=== PATIENT | male | born 1975 | race African-American/Black ===

== ENCOUNTER 2016-09-03 18:33 | Inpatient (IN) ==
[2016-09-03 19:44] LABS: MANUAL DIFF NEEDED? NO
[2016-09-03 19:56] LABS: BASO% 0.1 % (0.0-0.8); HEMATOCRIT 36.1 % (42.0-52.0); HEMOGLOBIN 11.6 g/dL (14.0-18.0); IMM GRAN# 0.06 X1000 (0.0-0.04); IMM GRAN% 0.4 % (0.0-0.5); LYMPH# 1.05 X1000 (1.2-3.4); LYMPH% 6.3 % (20.5-51.1); MCH 30.3 PG (27-31); MCHC 32.1 g/dL (33-37); MCV 94.3 FL (81-99); MONO# 1.81 X1000 (0.11-0.59); MONO% 10.8 % (1.7-9.3); MPV 11.6 FL (7.4-10.4); NEUT% 82.4 % (42.2-75.2); PLT 160 X1000 (130-400); RBC 3.83 XMIL (4.7-6.1)
[2016-09-03 20:35] LABS: ALBUMIN 3.1 g/dL (3.5-5.0); CALCIUM 6.1 mg/dL (8.8-10.2); POTASSIUM 4.5 mmol/L (3.5-5.1); TOTAL BILIRUBIN 0.52 mg/dL (0.20-1.00); TOTAL PROTEIN 7.3 g/dL (6.3-8.3)
[2016-09-03] MEDS ORDERED: NS 1,000 ML ONE (20:56)
[2016-09-03] MEDS ORDERED: VANCOMYCIN 1 GM/NS 1 GM/250 ML IVPB IV ONE (21:05)
[2016-09-03] MEDS ORDERED: NS 250 ML IV ONE ×2 (21:08→22:13)
[2016-09-03] MEDS: LEVOPHED 8 MG in D5 1/2 NS 250 ML IV SCH ×2 (21:28→22:36)
[2016-09-03 21:32] LABS: ALLEN TEST YES; BE -3.6 mmoll (-3.0-3.0); BLOOD TYPE ARTERIAL; DRAW SITE L BRACHIAL; METHB 0.1 % (0.0-1.5); O2(CT) 15.4 mL/dL (15.0-23.0); PCO2(98.6) 20 mmHg (35-45); PO2(98.6) 132 mmHg (60-100); SAMPLE BLOOD; THB 11.4 g/dL (11.5-17.4); pH(98.6) 7.54 (7.35-7.45)
[2016-09-03 21:34] LABS: MODALITY CANNULA
[2016-09-03] MEDS ORDERED: CALCIUM GLUCONATE 2 GM in NS 100 ML IV ONE (22:13)
--- NOTE | 2016-09-03 23:23 | HISTORY AND PHYSICAL ---
PRIMARY [employer] ANDROID DEVELOPER: Dr. Michael Hubbard. CHIEF COMPLAINT: Low blood pressure. Cough. Fever. HISTORY OF PRESENT ILLNESS: This is a 40-year-old male with past medical history of end-stage renal disease on hemodialysis, hypertension, diabetes, who was brought to the emergency department because of low blood pressure while he was getting dialysis. The patient reports that during the last week approximately he has noticed some cough that was getting progressively worse and also he was bringing some greenish sputum as well. He noticed fever for the last few days and apparently one was documented while he was getting dialysis of 101. In dialysis he was noted to have a blood pressure that was getting low in the range of 80s and 90s. So he was brought here to the hospital. Upon ER evaluation, he was found to have an elevated white blood count and BMP unremarkable except renal dysfunction and calcium 6.1. He was requiring oxygen 2 L/minute. The temperature recorded here at 6:48 p.m. was 99.3, so he received in the ER vancomycin and 2 sets of blood cultures were drawn. The patient is going to be admitted for possible sepsis and pneumonia versus bronchitis suspected. PAST MEDICAL HISTORY: 1. End-stage renal disease on hemodialysis on Thursday, Thursday, and Thursday in the last 5-6 years. 2. Hypertension. 3. Diabetes mellitus type 2. PAST SURGICAL HISTORY: 1. Left 2nd and 3rd digit amputation. 2. Dialysis fistula. 3. . ALLERGIES: Patient reports being allergic to morphine which causes itching and also to amoxicillin as well. SOCIAL HISTORY: He denies drinking alcohol, smoking tobacco, or using illicit drugs. REVIEW OF SYSTEMS: Eleven systems were reviewed and all symptoms are related to H P. PHYSICAL EXAMINATION: VITALS: Temperature 99.8 degrees, heart rate 111, respiratory rate 22, blood pressure 82/61, O2 saturation 98% on 2 L nasal cannula. GENERAL EXAMINATION: This is a morbidly obese male, lying in bed in no acute distress. HEENT: Head is normocephalic, atraumatic. Anicteric sclerae and pale conjunctivae. Mucous membranes moist. Pupils equally round, reactive to light and accommodation. NECK: Supple. JVD is not possible to evaluate because of the neck girth. No lymphadenopathy, no thyromegaly. CARDIOVASCULAR: S1 and S2 heard. No murmurs, gallops, or rubs. Regular rate and rhythm. ABDOMEN: Soft, nontender to palpation. Bowel sounds present. No organomegaly. EXTREMITIES: No clubbing, cyanosis, or edema. Left 2nd and 3rd digits amputated. Also, there is an area of fluctuance in the left buttock, very painful to palpation. NEUROLOGICAL: Patient is alert and oriented x3. Moves 4 extremities. OTHER LABORATORY DATA: White cell count 16.71, hemoglobin 11.6, hematocrit 36.1 , platelet 160,000. ABG shows pH 7. , PCO2 20, PO2 132. BMP showed a sodium 136, potassium 4.5, chloride 88, bicarbonate 18, BUN 49, creatinine 11.6, calcium 6.1. ASSESSMENT AND PLAN: 1. Sepsis secondary to pneumonia. 2. End-stage renal disease on hemodialysis. 3. Diabetes mellitus. 4. Hypotension. 5. Morbid obesity. 6. Possible sleep apnea. 7. Possible gluteal abscess PLAN: The patient is being admitted to the hospital because of history of approximately 1 week of cough that is getting worse and fever, white cell count of 88 and in the ER he was found to have a blood pressure coming down. The patient is going to be admitted to the intensive care unit. He will be started on broad-spectrum antibiotics with vancomycin and meropenem, both renally dosed. We are going to provide also breathing treatments. Also just to make sure and to have a better visualization of the lung anatomy, we are going to do a CT of the chest without contrast. Because the blood pressure we mentioned before is getting low, we will use vasopressors. For management of diabetes, we are going to check hemoglobin A1c and also use sliding scale insulin as well. For hypertension of course we are going to hold all blood pressure medication, although it is important to remark there is no blood pressure med recorded in the chart. For gluteal abscess will consult general surgery. Further recommendations to follow according to the clinical situation of the patient. cc: Alex Grover MD MTDD
[2016-09-03] MEDS: VANCOMYCIN 1 GM/NS 1 GM/250 ML IVPB IV ONE ×2 (23:35→23:40)
[2016-09-04] MEDS ORDERED: VANCOMYCIN IV PER PHARMACY MISC SCH (01:13)
[2016-09-04] MEDS ORDERED: ZOFRAN IV PRN (01:13)
[2016-09-04] MEDS: MERREM 500 MG in NS 50 ML IV SCH (01:35)
[2016-09-04 01:37] LABS: HEMOGLOBIN A1C 9.4 % (4.8-6.0)
[2016-09-04] MEDS: TYLENOL PO PRN ×2 (02:13→12:46)
[2016-09-04] MEDS ORDERED: XYLOCAINE 1% ONE (02:32)
[2016-09-04] MEDS: DUONEB (A & A) INH SCH ×4 (02:51→19:19)
--- NOTE | 2016-09-04 05:36 | EKG Report ---
Test Performed on : 09/03/2016 9:13:31 PM Test Reason : CP Blood Pressure : / mmHG Vent. Rate : 116 BPM Atrial Rate : 116 BPM P-R Int : 140 ms QRS Dur : 074 ms QT Int : 360 ms P-R-T Axes : 053 -05 034 degrees QTc Int : 500 ms Sinus tachycardia. Low voltage QRS Borderline ECG When compared with ECG of 28-JUL-2015 18:43, No significant change was found Unconfirmed Result
[2016-09-04] MEDS: HEPARIN SUBQ SCH ×3 (06:06→21:30)
[2016-09-04 06:24] LABS: EOS# 0.01 X1000 (0.0-0.7); HEMATOCRIT 37.1 % (42.0-52.0); HEMOGLOBIN 11.5 g/dL (14.0-18.0); IMM GRAN# 0.17 X1000 (0.0-0.04); IMM GRAN% 0.8 % (0.0-0.5); LYMPH# 1.33 X1000 (1.2-3.4); LYMPH% 6.1 % (20.5-51.1); MANUAL DIFF NEEDED? YES; MCH 29.9 PG (27-31); MCV 96.4 FL (81-99); MONO# 2.88 X1000 (0.11-0.59); MONO% 13.1 % (1.7-9.3); MPV 11.3 FL (7.4-10.4); PLT 165 X1000 (130-400); RBC 3.85 XMIL (4.7-6.1)
[2016-09-04 06:40] LABS: LYMPHS 8 % (21-51); MONO 8 % (1-9)
[2016-09-04 06:46] LABS: POTASSIUM 4.8 mmol/L (3.5-5.1)
[2016-09-04 06:48] LABS: CALCIUM 6.4 mg/dL (8.8-10.2)
--- NOTE | 2016-09-04 07:04 | CONSULTATION ---
DATE OF CONSULTATION: 09/04/2016 REQUESTING PHYSICIAN: Hospitalist Service. REASON FOR CONSULTATION: Right gluteal abscess. HISTORY OF PRESENT ILLNESS: A 40-year-old male with multiple medical comorbidities presenting with a low blood pressure, fever and cough from dialysis. He was seen in emergency department and had a temperature of 101 degrees. At that time, there was what appeared to be a gluteal abscess which they drained. He had been in the emergency department until an ICU bed became available. His clinical situation was somewhat deteriorating and was started on additional supportive therapy including vasopressors. They had requested me to evaluate for the gluteal abscess. He is still currently on Levophed reporting pain in his right gluteal area. He had a CT scan that did not show an abscess but showed area of gas which is likely related to the previously drained abscess. I clinically do not feel any crepitus is suspected. He has a necrotizing soft tissue infection but I was asked to evaluate for that. PAST MEDICAL HISTORY: 1. End-stage renal disease requiring hemodialysis. 2. Hypertension. 3. Diabetes mellitus. PAST SURGICAL HISTORY: 1. Includes previous digital amputations. 2. Dialysis fistula. 3. Previous surgery on scrotal and penile ischemia. ALLERGIES: Morphine and amoxicillin. SOCIAL HISTORY: Denies drinking alcohol, tobacco or illicit drugs. FAMILY HISTORY: Reviewed with patient, noncontributory to this case. REVIEW OF SYSTEMS: A full 10 point review of systems obtained, negative as specified in HPI. PHYSICAL EXAMINATION: Vital Signs: Patient is currently afebrile. Temperature 98 degrees, pulse 90s to 100's, respiratory nonlabored in the 20s, and blood pressure 94/50 on Levophed. O2 saturation 100% on room air. General: No acute distress. Alert, interactive male who looks stated age. He is morbidly obese. HEENT: Normocephalic and atraumatic. Pupils equal, round, and reactive to light. Mucous membranes moist. Oropharynx benign. Neck: Supple. Trachea midline. Cardiovascular: Regular rate and rhythm. Lungs: Grossly clear. Abdomen: Soft and nontender. Extremities: Area of erythema noted to the right gluteal aspect not currently draining anything and very tender to palpation. Neurologic: Grossly intact. LABORATORY: White blood cell count is 21.9, hematocrit 37.1 and platelet count 165,000. CT scan independently reviewed and radiology report reviewed, noted as above. ASSESSMENT/PLAN: A 40-year-old, male with multiple medical comorbidities currently with gluteal abscess. 1. Sepsis. At this time, patient potentially has symptoms from pneumonia per the hospitalist's evaluation. Do not suspect that this gluteal abscess is causing it. I think it was adequately drained at the emergency department, but I will do a bedside incision and drainage. 2. End-stage renal disease currently on hemodialysis. 3. Gluteal abscess. At this time, I will plan on a bedside incision and drainage of gluteal abscess. We will likely pack it with Kerlix rolls and monitor him closely. He is on antibiotics. We will continue to follow with you. I appreciate the consult. cc: Sigifredo Machuca MD
--- NOTE | 2016-09-04 07:11 | OPERATIVE NOTE ---
PROCEDURE DATE: 09/04/2016 PREOPERATIVE DIAGNOSIS: Right gluteal abscess. POSTOPERATIVE DIAGNOSIS: Right gluteal abscess. PROCEDURE: Incision drainage for right gluteal abscess. SURGEON: Sigifredo Machuca MD. SNAILER: None. ANESTHESIA: Local administered by the surgeon. FINDINGS: Cavity noted to the right gluteal fold which had previously been drained and had some purulence. BRIEF HISTORY: The patient is a 40-year-old male with multiple medical comorbidities presenting with fever and pneumonia. He was found have a gluteal abscess. It had been drained previously in the emergency department. They had a repeat CT scan that showed air in the area with a gluteal abscess and was concerning for necrotizing soft tissue infection. He clinically did not have that picture. He did not have any crepitus, but I felt that there potentially could be undrained abscess given the fact that the skin had closed back up. The risks, benefits and alternatives for drainage were discussed. All questions were answered. DESCRIPTION OF PROCEDURE: After informed consent was obtained, patient remained in his ICU bed. At that time, we used local anesthetic to anesthetize the skin after the formal time-out. After that, we prepped and draped the area in a semi sterile fashion. We used an 11 blade to make a long incision. We encountered some purulence. I did bluntly dissect into a cavity and encountered more purulence that tracked approximately 10 cm from the gluteus inward. We packed the area with normal saline soaked gauze and placed a sterile dressing. The patient tolerated the procedure well. He remained in his ICU bed. Postoperatively, we will get a wound care to see him for potential vashe wet-to-dry dressing changes b.i.d. cc: Sigifredo Machuca MD [facility]
[2016-09-04] MEDS ORDERED: HEPARIN ONE (07:38)
[2016-09-04] MEDS ORDERED: NS 2,000 ML ONE (07:39)
[2016-09-04] MEDS ORDERED: NS 2,000 ML MISC PRN (07:45)
[2016-09-04] MEDS ORDERED: TIGHT: 0.2 ML/HR MISC PRN (07:45)
[2016-09-04] MEDS ORDERED: HEPARIN IV PRN (07:45)
--- NOTE | 2016-09-04 07:48 | Diag Imaging Result Document ---
PROCEDURE NAME: CHEST-PORTABLE - 09/03/2016 PORTABLE CHEST X-RAY: COMPARISON: 07/28/2015. FINDINGS: There is a new left dialysis catheter with the tip in good position at the cavoatrial junction. The lungs are clear. No pneumothorax or pleural effusion. Heart size remains enlarged. IMPRESSION: No complication.
--- NOTE | 2016-09-04 07:51 | Diag Imaging Result Document ---
PROCEDURE NAME: CT THORAX W/O CONTRAST - 09/03/2016 CT CHEST: A CT dose reduction protocol was used. COMPARISON: 02/06/2013. FINDINGS: There is severe vascular calcification of all of the arteries visualized, including the coronary arteries. The lungs are clear of infiltrate. Heart size is grossly normal. No pneumothorax or pleural effusion. No adenopathy. There is a left dialysis catheter with the tip at the cavoatrial junction. No acute bony lesions. IMPRESSION: No acute disease or complication. [facility]
--- NOTE | 2016-09-04 07:53 | Diag Imaging Result Document ---
PROCEDURE NAME: ABDOMEN/PELVIS W/O CONTRAST - 09/04/2016 CT ABDOMEN AND PELVIS: A CT dose reduction protocol was used. COMPARISON: 09/10/2013. FINDINGS: There is subcutaneous edema and significant subcutaneous gas at the left right buttocks. The largest area measures about 5.8 x 8.1 cm in AP and lateral dimensions. No focal or drainable fluid collection visible. This does not extend to the perineum. No deeper tissue involvement. No bowel obstruction or inflammation. Urinary bladder, prostate, and rectum are normal. There is extreme atrophy of the kidneys and severe calcified atherosclerotic disease throughout the abdomen and pelvis. No acute abnormalities in the abdomen or pelvis otherwise. No acute bony lesions. IMPRESSION: Subcutaneous edema and gas at the right buttock consistent with infection with a gas- forming bacterium. However, no drainable fluid collections. No involvement of the perineal or deeper structures. [facility]
[2016-09-04] MEDS: NORCO-5 PO PRN (07:55)
[2016-09-04] MEDS: HUMALOG SUBQ SCH ×4 (08:00→21:31)
--- NOTE | 2016-09-04 08:58 | CONSULTATION ---
DATE OF CONSULTATION: 09/04/2016 CONCLUSION: The patient was admitted to the hospital. He was hypotensive and felt to be septic. It should be noted the CT scan of the chest shows clear lungs so it does not appear the patient has pneumonia. He is complaining of congestion in his sinuses and he may have a sinusitis; however, I would doubt that would be causing a septic-like condition. The patient has an AV fistula in his left arm that has recently been operated on and he has a dialysis catheter in the left side of his neck, and I think it is possible that he could have a bacteremia originating from the dialysis catheter. Patient does have on his back an abscess. It was originally drained once and then it was redrained again today. I do not think this is the source of the patient's hypotension and presumed sepsis, but it possibly could be. RECOMMENDATIONS: I have ordered a portable sinus x-ray. Also I have ordered that the patient who already received 1 dose of vancomycin, that I have ordered to for him to get 1 g of vancomycin after each dialysis. I agree with placing the patient on meropenem pending blood culture results. DISCUSSION: This gentleman is a dialysis patient. He was admitted to the hospital because he became hypotensive. [place] [address], hemoglobin 11.5, and platelet count 165,000. Creatinine is 12.8, GFR is 5. Liver function studies are normal. Patient's blood gases show a pH of 7.54, PO2 of 132 and a pCO2 of 20. CT scan of the chest shows clear lung [place]. Gram stain taken from the patient's back abscess on gram stain has gram positive cocci. PAST MEDICAL/HISTORY REVIEW OF SYSTEMS: Eyes and ears: He denies difficulty hearing or seeing. Neck: No stiffness. Respiratory: No cough or shortness of breath. Cardiovascular: No chest pain or palpitations. Gastrointestinal: The patient had some loose stools for a couple of days. He is anorectic but he is not vomiting. Genitourinary: The patient does not pass any urine. He has end-stage renal disease, and he is on dialysis. GI: As mentioned above, patient is anorectic and he did have diarrhea. Bones, joints, muscles: No joint swelling or muscle aching. Neurologic: No motor or sensory loss. No seizures. The remainder of the review of systems was completed and was negative. PREVIOUS HOSPITALIZATIONS AND OPERATIONS: He has had an AV fistula put in his left arm and then this was reoperated on recently. He has had an internal jugular catheter placed for dialysis. He has had amputation of the left middle finger and amputation of the toes 2 and 3 on the left foot. He has had incision and drainage of the sacral abscess twice now. MEDICAL DISEASES: Positive for end-stage renal disease. Patient is on hemodialysis. He is obese. He has diabetes mellitus and hypertension. INFECTIOUS DISEASE HISTORY: Negative for pneumonia and UTI. FAMILY HISTORY: Positive for hypertension. SOCIAL HISTORY[place] is [place]. He lives with his parents. He has dogs for pets. He does not smoke cigarettes, drink alcoholic beverages or abuse drugs. He is disabled. ALLERGIES: Patient's chart lists allergies to amoxicillin and morphine. HOME MEDICATIONS: 1. Insulin. 2. Gabapentin. PHYSICAL EXAMINATION: Vital Signs: Temperature is 98 degrees, pulse 105, respirations 23, blood pressure 94/50. Patient's weight is 350 pounds. General: This is an obese young male. He is slightly lethargic. He is in no acute distress. Head, eyes, ears, nose, and throat: No drainage noted from the nose or ears. There is no white coating to his tongue. Neck: No meningismus thorax. Patient has an increased AP diameter. Lungs: Clear to auscultation. Cardiovascular: Regular heart rate. Extremities: The patient in his left arm has an AV fistula which has recently been operated on. There is no drainage coming from it and it is not tender. Neck: Not stiff. He does have an internal jugular catheter in place for dialysis. The catheter site is not swollen or tender. Abdomen: Abdomen is soft and nontender. Neurologic: Patient is awake. He can move his extremities. There is no tremor. His sensation is intact to touch. His memory, as regarding his medical history seemed to be intact also. Thank you for the consult. cc: Mikey Ahn MD
--- NOTE | 2016-09-04 10:21 | PROGRESS NOTE ---
DATE: 09/04/2016 HISTORY: Admitted yesterday. A 40-year-old with a past medical history of end-stage renal disease on hemodialysis, hypertension, and diabetes. Brought into the emergency room low blood pressure while he was getting dialysis. The reports that the last week approximately, noted some cough and getting progressively worse. He also was bringing some greenish sputum up. Noticed a fever for a few days. Apparently was documented while in dialysis, had a fever of 101 in dialysis, noted blood pressure being low in the range of 80s and 90s. Brought here to the hospital. ER evaluation, evaluated white blood cell count. The BNP was unremarkable except for his elevated creatinine, calcium of 6.1, requiring oxygen at 2 L per minute. Temperature was 99.3 degrees. Was given some vancomycin. Two sets of blood cultures were drawn. Admitted for possible sepsis, pneumonia, bronchitis. PAST MEDICAL HISTORY: Reviewed again. 1. End-stage renal disease, Thursday, Wednesdays, and Fridays. 2. Hypertension. 3. Diabetes mellitus type 2. PAST SURGICAL HISTORY: 1. Left second and third digit amputation. 2. Distal fistula. DIAGNOSTIC DATA: A chest x-ray apparently revealed pneumonia. SUBJECTIVE: This morning, he feels better, breathing a little better. He just started dialysis. Appears comfortable. PHYSICAL EXAMINATION: Vital Signs: Blood pressure is still running low, 80s-90s systolic. Temperature 99, pulse 103, respirations 22. Lungs: Were clear anterolateral. Cardiovascular Examination: Regular rhythm and rate without murmur or S3. Abdomen: Soft. Skin: Warm and dry. Is and Os: Good urine output. LAB: White count 21,910, hematocrit 37, platelet count 165,000. Chemistry: Sodium 138, potassium 4.8, chloride 89, bicarb 14, BUN 56, creatinine 12.6, and calcium 6.4. ASSESSMENT AND PLAN: 1. Pneumonia with sepsis. CT scan of the chest showed clear lungs so apparently he does not have pneumonia but appeared to be septic coming in. He was complaining of sinus congestion so he may have sinusitis but doubt that this would be causing his septic like symptoms. He has an arteriovenous fistula in the left arm, recently operated on, has dialysis catheter in the left side of his neck. Dr. Ahn is following so this possibly could be bacteremia originating from the dialysis catheter. The patient does have an abscess on his back that was originally drained once. Then it drained again, I guess today. Continue vancomycin. The patient was placed on meropenem per Dr. Ahn as well. 2. Abscess on his back, local anesthesia, right gluteal abscess was drained. 3. End-stage renal disease. I am going to see if we can draw some fluid off. 4. Hypertension. 5. Morbid obesity. 6. Sleep apnea, obstructive apnea. 7. Review of his orders. I do not see anything to change at this point. He got 2 g of calcium gluconate. He is on meropenem 500 mg intravenous every 24 hours, vancomycin, receiving post dialysis. He is on heparin 5000 units subcutaneous every 8. cc: Gilson Truong MD
--- NOTE | 2016-09-04 10:41 | CONSULTATION ---
DATE OF CONSULTATION: 09/04/2016 REASON FOR ADMISSION: Fever associated with productive cough and weakness associated with low blood pressure. REASON FOR CONSULT: End-stage renal disease with assistance with medical management. HISTORY OF PRESENT ILLNESS: Mr. Gutierrez is a 40-year-old male who is known to our outpatient services for hemodialysis on Thursday, Thursday, and Thursday. Patient was at his routine dialysis treatment yesterday evening. He came in with a fever. We have drawn blood cultures. Unfortunately, the patient was not feeling well and had taken himself off dialysis early to come to the emergency room so he did not receive any prophylactic antibiotics. It appears that he was getting 1 g of vancomycin and Merrem in the emergency room and after arrival to the ICU. Due to his low blood pressure, the patient is currently on Levophed. Blood pressure is remaining in the low to mid 80s and he is in need for further treatment. Upon arrival in the emergency room, it was found that patient had been complaining of a boil on his perianal area, that he stated started approximately 5 days ago last . Stated that he thought it was getting better by Thursday, when he was seen at the outpatient clinic. Unfortunately, he said that by yesterday it was very, very uncomfortable and he could not sit and had fever. Dr. Machuca has subsequently seen the patient. He did an I D with drainage and it has wet to dry packing that is currently in place. He denies any nausea, vomiting, no diarrhea. No chest pain. No increased work of breathing. SOCIAL HISTORY: He has a girlfriend that he sees frequently. Denies any alcohol, illicit drug use, or tobacco. PAST MEDICAL HISTORY: End-stage renal disease with hemodialysis on Thursday, Thursday, Thursday, hypertension, diabetes mellitus type 2. He has a history of peripheral vascular disease, obesity, anemia secondary to chronic disease, and osteodystrophy secondary to chronic disease. Hypoparathyroidism and hypocalcemia secondary to previous parathyroidectomy. PREVIOUS SURGICAL HISTORY: He has had digits removed from the left hand. He has had gastric sleeve bypass in 2012. Hernia repair. Surgery on his left foot, diabetic ulcers on his right heel. Previous cellulitis treatment to the lower extremities. Previous tunnel catheters. AV fistula to the left upper arm, which is now not working. He has a tunnel catheter to the left chest wall. He has had a total parathyroidectomy with a transplantation to the right sternocleidomastoid muscle with excision of a lesion of penis during his hospitalization. ALLERGIES: The patient is currently allergic to morphine, which causing itching and amoxicillin, which causes him to swell. HOME MEDICATIONS: Have not been listed or reviewed at this time. He is currently on Merrem and vancomycin. REVIEW OF SYSTEMS: Times 10 with pertinent positives listed above in the history of present illness. PHYSICAL EXAMINATION: Vital Signs: Most recent vital signs are temperature is 99 degrees, blood pressure 104/61, heart rate 103, respirations 22. He is on room air. Last recorded saturation 100%. He has had 451 in and he has had 0 recorded out with need for dialysis. PHYSICAL EXAMINATION: General: This is a 40-year-old male. He is resting quietly in bed. He is in no acute distress. Skin: Warm and dry. HEENT: Normocephalic, atraumatic. Conjunctiva is pink. He has Pupils equal, round, and reactive to light. Mucous membranes moist. Neck: Supple. Trachea midline. No jugular venous distention. Cardiovascular: He is currently regular rate and rhythm. He is slightly tachycardic. He remains hypotensive. He remains on Levophed drip. He has a soft murmur. No gallop appreciable. Abdomen: Large, obese, soft, nontender. Positive bowel sounds. Lungs: Clear to auscultation anteriorly. Equal excursion on room air. Genitourinary: Not inspected. Minimal void with dialysis assist. He does continue to have packing to the perianal abscess. Extremities: Missing digits on the left hand. Fistula to the left upper arm without thrill audible. He has trace to 1 + lower extremity edema bilaterally. Neurological: Alert and oriented x3. LABS: Sodium 138, potassium 4.8, chloride is 89, CO2 14. BUN 56, creatinine 12.8, glucose 268. Anion gap of 35. Calcium 6.4. White count 21.91, hemoglobin 11.5, hematocrit 37.1, with a platelet count of 165,000. ASSESSMENT AND PLAN: 1. End-stage renal disease. Patient did not fully dialyzed yesterday secondary to pain and hypotension. He remains on Levophed. We will dialyze him in the ICU today. We will place him on a 3 K bath. He is to dialyze for 3.[address] him on a 2.5 calcium bath and attempt to pull patient to his dry weight with use of Levophed as titration, if needed. 2. Electrolytes. These remain stable. 3. Acid-base balance. Patient's CO2 is at 14 with correction on dialysis. 4. Anemia. This is actually close to target. 5. Abscess to the left buttock, perineal area. This is being followed by surgery. He continues on Merrem and vancomycin to be renally dosed. I would to thank you for allowing us to follow with this patient. Seen, data reviewed, discussed with Yeison Duran on 09/04/16. I agree with the above assessment and plan of care. rg Dictated by BOOM Faustin for Michael Hubbard MD cc: BOOM Faustin MD [facility]
[2016-09-04] MEDS: LEVOPHED 8 MG in D5 1/2 NS 250 ML IV SCH (12:06)
[2016-09-04] MEDS: PRILOSEC PO SCH (12:49)
[2016-09-04] MEDS: VANCOMYCIN 1 GM/NS 1 GM/250 ML IVPB IV SCH (13:17)
--- NOTE | 2016-09-04 15:08 | Diag Imaging Result Document ---
PROCEDURE NAME: SINUSES - 09/04/2016 SINUS SERIES 3 VIEWS: FINDINGS: There is hyperostosis of the frontal bone. The paranasal sinuses appear to be clear. There are no air fluid levels and no acute bony abnormalities are present. IMPRESSION: No evidence of acute disease.
[2016-09-05] MEDS: TYLENOL PO PRN (00:25)
[2016-09-05] MEDS: MERREM 500 MG in NS 50 ML IV SCH (00:27)
[2016-09-05] MEDS: DUONEB (A & A) INH SCH ×4 (02:54→19:16)
[2016-09-05] MEDS: HEPARIN SUBQ SCH ×3 (04:12→20:52)
[2016-09-05] MEDS: LEVOPHED 8 MG in D5 1/2 NS 250 ML IV SCH (04:13)
[2016-09-05] MEDS: NORCO-5 PO PRN ×2 (04:21→18:56)
[2016-09-05] MEDS: HUMALOG SUBQ SCH ×4 (06:28→21:13)
[2016-09-05] MEDS ORDERED: HEPARIN IV PRN (07:13)
[2016-09-05] MEDS ORDERED: TIGHT: 0.2 ML/HR MISC PRN (07:13)
[2016-09-05] MEDS ORDERED: NS 2,000 ML MISC PRN (07:13)
--- NOTE | 2016-09-05 07:54 | PROGRESS NOTE ---
DATE: 09/05/2016 SUBJECTIVE: The patient is doing okay, reports some soreness. Reviewed wound care's note. The wound has been repacked with Vashe gauze. OBJECTIVE: Vital signs: Patient is currently afebrile. He is back on Levophed for his blood pressure. His most recent set of recorded vital signs are temperature 99.7 degrees, pulse 101, respiratory rate 15, blood pressure 97/36, O2 saturation 93% on room air. General exam: No acute distress. Interactive, -[place]ian male who looks stated age. Cardiovascular: Regular rate and rhythm. Lungs: Grossly clear. Abdomen: Soft. Nontender, nondistended. Extremities: Dressing to right gluteal area intact. There is somewhat of a smell to the area. No other changes, otherwise. LABORATORY DATA: Pending from this morning. ASSESSMENT AND PLAN: A 40-year-old, -[place]ian male with right gluteal abscess. 1. Right gluteal abscess. At this time, we will continue dressing changes by wound care with Vashe. 2. Sepsis. At this time, being managed by the hospitalist service, will continue to follow. 3. End-stage renal disease. Currently on dialysis. cc: Sigifredo Machuca MD
[2016-09-05] MEDS: CILOXAN OPHTH SOLN BOTH EYES SCH ×4 (08:27→20:48)
[2016-09-05] MEDS: PRILOSEC PO SCH (08:29)
[2016-09-05 08:45] LABS: MANUAL DIFF NEEDED? NO
[2016-09-05 08:51] LABS: BASO% 0.1 % (0.0-0.8); EOS# 0.15 X1000 (0.0-0.7); EOS% 0.9 % (0.0-10.0); HEMATOCRIT 37.7 % (42.0-52.0); HEMOGLOBIN 11.8 g/dL (14.0-18.0); IMM GRAN# 0.07 X1000 (0.0-0.04); IMM GRAN% 0.4 % (0.0-0.5); LYMPH# 0.92 X1000 (1.2-3.4); LYMPH% 5.5 % (20.5-51.1); MCHC 31.3 g/dL (33-37); MCV 95.9 FL (81-99); MONO# 1.55 X1000 (0.11-0.59); MONO% 9.3 % (1.7-9.3); MPV 11.4 FL (7.4-10.4); NEUT% 83.8 % (42.2-75.2); PLT 183 X1000 (130-400); RBC 3.93 XMIL (4.7-6.1)
[2016-09-05 09:35] LABS: CALCIUM 7.1 mg/dL (8.8-10.2)
[2016-09-05] MEDS ORDERED: DILAUDID IV ONE (10:49)
[2016-09-05] MEDS ORDERED: HEPARIN ONE (13:00)
[2016-09-05] MEDS ORDERED: NS 2,000 ML ONE (13:00)
--- NOTE | 2016-09-05 15:04 | PROGRESS NOTE ---
DATE: 09/05/2016 SUBJECTIVE: He is still complaining of pain. He also has sinus congestion and describes crustiness of his eyes. OBJECTIVE: Vital Signs: Blood pressure 142/88, heart rate 110, respirations 18, temperature 99.3. Intake and output of -2.9 L. General: On physical exam, an obese black man in no acute distress. Skin: Warm and dry. HEENT: Conjunctivae are pink, not inflamed. Oropharynx is clear. Neck: Supple. No jugular venous distention. Lungs: Equal. No crackles. Abdomen: Soft, nontender. Bowel sounds are present. Extremities: Have trace edema. No clubbing or cyanosis. LABORATORY DATA: Sodium 132, potassium 5.0, chloride 89, bicarbonate 24, BUN 49, creatinine 10.9. IMPRESSION: 1. End-stage kidney disease. He will have his routine dialysis today using a 2 potassium bath. 2. Electrolytes are in target. 3. Acid base, improved. Anion gap is improved. 4. Gram-positive cocci bacteremia. The sensitivity and identification are still pending. He is on vancomycin. 5. Right gluteal abscess. Treated surgically. Continue wound care. cc: Michael Hubbard MD
[2016-09-05] MEDS: VANCOMYCIN 1 GM/NS 1 GM/250 ML IVPB IV SCH (16:16)
[2016-09-05] MEDS ORDERED: KEFZOL 1 GM/D5W 1 GM/50 ML IVPB IV SCH (19:00)
--- NOTE | 2016-09-05 19:52 | PROGRESS NOTE ---
DATE: 09/05/2016 PRESENT ILLNESS: The patient came in, in a septic condition, the exact etiology of which is uncertain to me. He does have a back wound which on Gram stain gram-positive cocci were seen. He had 1 blood culture which was negative and I tried to go back and complete the follow-up cultures. He he had 1 recently that did not grow anything and the other blood culture was canceled. I could not find any other blood cultures that have been drawn around this time that the patient is in the hospital. His sinus x-rays are negative so he does not appear to have any sinusitis. His left arm dialysis site has an eschar on it but again does not look like it is infected. MEDICATIONS: The patient currently now is getting vancomycin at a dose of 1 g IV after each dialysis. He also is getting Ancef 1 g IV every 12 hours for his wound from the right buttock. I do not think we will have to keep going with the Ancef because the vancomycin should cover the gram-positive coccus that he is getting after each dialysis. As mentioned above, the patient is getting vancomycin. I have stopped the patient's Ancef. PHYSICAL EXAMINATION: Vital Signs: Temperature is 99.1 degrees, pulse 120, respirations 16, blood pressure 76/57. HEENT: The eyes look less injected and there is no purulent drainage. Lungs: Clear to auscultation. Cardiovascular: Regular heart rate. Neck: The dialysis catheter site is not swollen or purulent. Extremities: In the left arm the AV fistula site, as mentioned above, has an eschar on it but there is no purulent drainage. Abdomen: Soft and nontender. LABS AND X-RAY: Sinus x-rays did not show any evidence of sinusitis. The patient's creatinine is 10.9, GFR is 7, CBC shows white count of 16,750, hemoglobin 11.8, and platelet count 18,000. ASSESSMENT AND PLAN: I am going to keep the vancomycin going for the patient's sacral infection. COMORBIDITY: End-stage renal disease for which the patient is on hemodialysis. The patient also has diabetes. He is also very obese. cc: Mikey Ahn MD
[2016-09-05] MEDS: AFRIN NASAL SPRAY NAS SCH (21:50)
[2016-09-06] MEDS: CILOXAN OPHTH SOLN BOTH EYES SCH ×6 (00:15→20:45)
[2016-09-06] MEDS: NORCO-5 PO PRN ×3 (02:21→21:45)
[2016-09-06] MEDS: DUONEB (A & A) INH SCH ×4 (03:09→19:29)
[2016-09-06] MEDS: HEPARIN SUBQ SCH ×3 (05:50→20:45)
[2016-09-06] MEDS: HUMALOG SUBQ SCH ×4 (06:02→21:52)
--- NOTE | 2016-09-06 08:07 | PROGRESS NOTE ---
DATE: 09/05/2016 SUBJECTIVE: The patient had a really uneventful night, feeling better. OBJECTIVE: Vital signs: T-max was 100.3. Pulses range between 100 and 120. Blood pressures in the middle 80s to 124 systolic. Lungs: Clear in all lung [place]. Cardiovascular: Regular rhythm and rate without murmur or S3. Abdomen: Soft. Skin: Warm and dry. LABORATORIES FOR TODAY: White count is down a little bit, 16,750 down from yesterday when it 21,000. Hematocrit 37. Platelet count 183,000. Sodium 132, potassium 5.0, chloride 89, bicarbonate 24, BUN 49, creatinine 10.9. Blood sugars 272, 288, 252, 243. ASSESSMENT AND PLAN: 1. Patient came in in a septic condition, exact etiology uncertain. He does have a back wound, Gram stain gram-positive cocci. He has had 1 blood culture that was negative. Dr. Ahn is following. At the present time, getting vancomycin after each dialysis, also getting Ancef 1 g IV q.12 h. for the wound on his right buttock. 2. End-stage renal disease. Can be dialyzed, can take some volume off. 3. Electrolytes on target. 4. Acid-base improved. REVIEW OF HIS ORDERS: I do not see anything to change right now. On heparin 5000 units subcutaneously q.8 h. and insulin, Humalog sliding scale, Prilosec 20 mg a day. cc: Gilson Truong MD
[2016-09-06 09:22] LABS: MANUAL DIFF NEEDED? NO
[2016-09-06] MEDS: PRILOSEC PO SCH (09:29)
[2016-09-06 09:30] LABS: BASO% 0.2 % (0.0-0.8); EOS# 0.19 X1000 (0.0-0.7); EOS% 1.1 % (0.0-10.0); HEMATOCRIT 33.9 % (42.0-52.0); HEMOGLOBIN 10.7 g/dL (14.0-18.0); IMM GRAN# 0.16 X1000 (0.0-0.04); IMM GRAN% 0.9 % (0.0-0.5); LYMPH# 1.76 X1000 (1.2-3.4); LYMPH% 10.1 % (20.5-51.1); MCH 30.2 PG (27-31); MCHC 31.6 g/dL (33-37); MCV 95.8 FL (81-99); MONO# 1.46 X1000 (0.11-0.59); MONO% 8.4 % (1.7-9.3); NEUT% 79.3 % (42.2-75.2); PLT 198 X1000 (130-400); RBC 3.54 XMIL (4.7-6.1)
[2016-09-06] MEDS: AFRIN NASAL SPRAY NAS SCH ×2 (09:31→21:51)
[2016-09-06] MEDS: DILAUDID IV PRN (09:48)
[2016-09-06 10:02] LABS: CALCIUM 7.4 mg/dL (8.8-10.2); POTASSIUM 4.9 mmol/L (3.5-5.1)
[2016-09-06] MEDS ORDERED: INSULIN PEN NEEDLES ONE (10:27)
--- NOTE | 2016-09-06 11:06 | PROGRESS NOTE ---
DATE: 09/06/2016 SUBJECTIVE: No events overnight other than he refuses wound dressing changes. Still having some discomfort in his right gluteus. OBJECTIVE: Vital signs: T-max overnight was 100.3, pulse is in the low 100s, blood pressure 133/50, oxygen saturation 95% on room air. General: He is alert. Abdomen: Soft, nontender. Integument: Warm and dry. Extremities: His right gluteal I D site has some persistent induration. No purulent drainage. No cellulitis. No necrosis. LABS: I reviewed his labs. Nothing pending new this morning. Creatinine is elevated chronically. White count was down to 16 yesterday. Glucose was 433 this morning. ASSESSMENT AND PLAN: This is a 40-year-old male with diabetes, end-stage renal disease and a gluteal abscess, status post I D. Wound continue dressing changes b.i.d., keeping the wound clean as we can. Packing as the patient tolerates this. Otherwise, antibiotics and further medical management per the hospitalist. No plans for surgical intervention at this time. cc: Alonso Tejada MD
--- NOTE | 2016-09-06 12:01 | PROGRESS NOTE ---
DATE: 09/06/2016 SUBJECTIVE: Mr. Gutierrez is having quite a bit of pain in the buttocks, especially after they do his dressing changes. I will go up on his pain medicines with some Dilaudid. OBJECTIVE: Low grade temperature of 100, pulse 109, respirations 24, blood pressure 133/50. CVP appears to be less than 6 cm. Lungs are clear anterior, lateral and posterior. Cardiovascular: Regular rate and rhythm without murmur or S3. Abdomen is soft. Skin is warm and dry. DIAGNOSTIC DATA: White count is 17,470, hematocrit 33, platelet count 198,000. I reviewed electrolytes from yesterday. Blood sugar is 252, 243 and 433. ASSESSMENT AND PLAN: 1. The patient came in with septic condition. Exact etiology not sure. Continue to treat back wound. He has gram-negative and gram-positive cocci, so we will continue his vancomycin and Ancef. 2. End stage renal disease. Hemodialysis to control volume. His volume looks good at this point. 3. Electrolytes on target. Acid base status seems to be good. 4. Diabetes mellitus type 2. Sugar is still running a little high. We will continue sliding scale. May put him on a split dose of Humulin 70/30. To review, he has just started Dilaudid and we will give him 0.5 to 1 mg q.4 hours p.r.n., vancomycin 1 g after dialysis, Prilosec 40 mg a day, some insulin sliding scale, he gets hydrocodone 5 mg p.o. q.4 hours p.r.n. He is getting ciprofloxacin drops to both eyes q.4 hours as well. cc: Gilson Truong MD
--- NOTE | 2016-09-06 12:04 | PROGRESS NOTE ---
DATE: 09/06/2016 SUBJECTIVE: He still has some pain especially when they dress his wounds but otherwise he is feeling okay. His appetite has not been great this morning but no vomiting. No shortness of breath. OBJECTIVE: Vital Signs: Blood pressure 133/50, heart rate 109, respirations 24, T-max 100.0 degrees. General: He is an obese, young man in no distress. Skin: Warm and dry. His surgical site was not examined. He still has an eschar overlying his fistula. HEENT: Pupils are equal. Conjunctivae are pink. Neck: Neck veins are not visible. Heart: Regular. Lungs: Have equal breath sounds. No crackles. Abdomen: Obese and soft. Bowel sounds are present. Extremities: Have no significant edema. No clubbing or cyanosis. LABORATORY DATA: Sodium 132, potassium 4.9, chloride 92, bicarbonate 17, BUN 45, creatinine 9.7. Hemoglobin 10.7, white blood cell count 17.5. IMPRESSIONS: 1. End-stage kidney disease. He had his routine dialysis yesterday. No indications for treatment today. 2. Bacteremia. Coagulase-negative Staph aureus from all blood culture bottles obtained on the evening of the at the dialysis unit. Final ID and sensitivity is pending. Repeat blood cultures done at the hospital are negative x1 set. Wound culture is growing Staph hemolyticus. Continue vancomycin as well as his broader antibiotic coverage. Dr. Ahn is on the case. He is still having low-grade fevers. It may be that we need to get his tunneled dialysis catheter removed. He has the catheter because he had a significant area of ulceration on his fistula. He has a large area of usable fistula away from this lesion so we will attempt to cannulate it on Thursday. Everything else being equal. If successful he we will have his catheter removed. 3. Electrolytes/acid base/anemia, acceptable. 4. Hypotension. He has chronic hypotension as an outpatient. We will attempt to stop his vasopressor support in order to transition to the floor. cc: Michael Hubbard MD
[2016-09-07] MEDS: CILOXAN OPHTH SOLN BOTH EYES SCH ×7 (00:10→23:17)
[2016-09-07] MEDS: DUONEB (A & A) INH SCH ×4 (03:26→19:49)
[2016-09-07] MEDS: HEPARIN SUBQ SCH ×3 (05:25→20:19)
[2016-09-07] MEDS: DILAUDID IV PRN ×4 (05:28→20:17)
[2016-09-07] MEDS: HUMALOG SUBQ SCH ×4 (06:26→20:19)
[2016-09-07] MEDS ORDERED: HUMULIN 70/30 SUBQ SCH (07:00)
[2016-09-07 07:36] LABS: MANUAL DIFF NEEDED? NO
[2016-09-07 07:54] LABS: BASO% 0.2 % (0.0-0.8); EOS# 0.27 X1000 (0.0-0.7); EOS% 1.9 % (0.0-10.0); HEMATOCRIT 32.5 % (42.0-52.0); HEMOGLOBIN 10.2 g/dL (14.0-18.0); IMM GRAN# 0.17 X1000 (0.0-0.04); IMM GRAN% 1.2 % (0.0-0.5); LYMPH# 1.57 X1000 (1.2-3.4); LYMPH% 10.9 % (20.5-51.1); MCH 30.1 PG (27-31); MCHC 31.4 g/dL (33-37); MCV 95.9 FL (81-99); MONO# 0.78 X1000 (0.11-0.59); MONO% 5.4 % (1.7-9.3); MPV 11.2 FL (7.4-10.4); NEUT% 80.4 % (42.2-75.2); PLT 207 X1000 (130-400); RBC 3.39 XMIL (4.7-6.1)
[2016-09-07 08:00] LABS: POTASSIUM 4.9 mmol/L (3.5-5.1)
--- NOTE | 2016-09-07 08:02 | PROGRESS NOTE ---
DATE: 09/07/2016 SUBJECTIVE: He states that he feels better today. The dressing change was not as painful. He was given some pain medicine. Breathing comfortably. PHYSICAL EXAMINATION: Vital Signs: Temperature 98.3 degrees, pulse 106, respirations 24, and blood pressure 106/32. HEENT: Pupils are equal and round. Lungs: Clear in all lung [place]. Cardiovascular Examination: Regular rhythm and rate without murmur or S3. Abdomen Soft. Skin: Warm and dry. Is and Os: Urine output 2200 mL. LABORATORY DATA: CBC reviewed from yesterday. Lab from this morning still pending. ASSESSMENT AND PLAN: 1. End-stage renal disease. Volume status looks good. 2. Bacteremia, coagulase-negative Staphylococcus aureus on blood cultures obtained from the 5th at the dialysis unit. Final identification and sensitivity pending. Repeat blood cultures done in the hospital were negative x1 set. Wound culture growing Staphylococcus hemolyticus. We are going to continue the vancomycin. The patient appears better clinically. Continue topical treatment. 3. He has a catheter. He had a significant area of ulceration on his fistula and he has a large area of usable fistula away from this lesion so they are going to attempt to cannulate it on Thursday. 4. Blood pressure looks good. 5. Eating well. Good oral intake, although he states he is not real hungry right now. 6. Diabetes mellitus type 2. I have adjusted the insulin. Lab, blood sugars still 379, 355, 245 so we may go up on his insulin. cc: Gilson Truong MD
[2016-09-07] MEDS: PRILOSEC PO SCH (08:15)
[2016-09-07] MEDS: HUMULIN 70/30 SUBQ SCH (08:19)
[2016-09-07] MEDS: AFRIN NASAL SPRAY NAS SCH ×2 (08:21→20:24)
--- NOTE | 2016-09-07 16:05 | PROGRESS NOTE ---
DATE: 09/07/2016 SUBJECTIVE: Improved pain and discomfort in his right gluteal region. OBJECTIVE: Vital signs: Low-grade temperature overnight 100.1. Pulse has been in the low 100s. Blood pressure 106/39, O2 saturation 96% on room air. LABORATORY: Reviewed. White count down to 14, hematocrit 32, creatinine is 10.7, sodium is a little low. Glucoses in the high 200s. ASSESSMENT: A 40-year-old male, status post incision and drainage of right gluteal abscess. He also has multiple other medical issues, diabetes, end-stage renal disease. The dressing was just changed by the nurse, which went well, states that there is a small amount of drainage from the wound, but no worsening pain or cellulitis, and he is eating breakfast this morning. PLAN: We will continue antibiotics pending his cultures per the Medicine Service and continue local wound care with dressing changes b.i.d. We will continue to follow along. cc: Alonso Tejada MD
[2016-09-08] MEDS: DILAUDID IV PRN ×4 (00:30→22:17)
[2016-09-08] MEDS: DUONEB (A & A) INH SCH ×4 (03:31→19:45)
[2016-09-08] MEDS: CILOXAN OPHTH SOLN BOTH EYES SCH ×5 (04:17→20:15)
[2016-09-08] MEDS: HEPARIN SUBQ SCH ×3 (04:17→20:58)
[2016-09-08 04:31] LABS: MANUAL DIFF NEEDED? NO
[2016-09-08 04:38] LABS: BASO% 0.2 % (0.0-0.8); EOS# 0.34 X1000 (0.0-0.7); EOS% 2.2 % (0.0-10.0); HEMATOCRIT 30.5 % (42.0-52.0); HEMOGLOBIN 9.4 g/dL (14.0-18.0); IMM GRAN# 0.34 X1000 (0.0-0.04); IMM GRAN% 2.2 % (0.0-0.5); LYMPH# 2.04 X1000 (1.2-3.4); LYMPH% 13.4 % (20.5-51.1); MCH 29.7 PG (27-31); MCHC 30.8 g/dL (33-37); MCV 96.5 FL (81-99); MONO# 1.29 X1000 (0.11-0.59); MONO% 8.5 % (1.7-9.3); MPV 11.1 FL (7.4-10.4); NEUT% 73.5 % (42.2-75.2); PLT 229 X1000 (130-400); RBC 3.16 XMIL (4.7-6.1)
[2016-09-08] MEDS: HUMALOG SUBQ SCH ×4 (06:11→20:58)
[2016-09-08] MEDS: HUMULIN 70/30 SUBQ SCH (06:12)
[2016-09-08 06:17] LABS: AGAP 24; BUN 71 mg/dL (8-22); CHLORIDE 92 mmol/L (98-107); COSMO 294; POTASSIUM 5.6 mmol/L (3.5-5.1); SODIUM 133 mmol/L (136-145); TCO2 17 mmol/L (25-35)
--- NOTE | 2016-09-08 06:47 | PROGRESS NOTE ---
DATE: 09/08/2016 SUBJECTIVE: No major issues reported by the nursing staff. Discussed most recent dressing change with nursing staff. Still draining some from the wound and does not appear to be tracking as much as it previously had been. OBJECTIVE: Vital Signs: Patient is currently afebrile. His vital signs have been stable. His blood pressure normally runs low. General: No acute distress. Cardiovascular: Regular rate and rhythm. Lungs: Grossly clear. Abdomen: Soft, nontender. Extremities: Dressing to the right gluteal wound intact. There is some drainage to the area. The smell has improved. LABORATORY: White blood cell count 15, hematocrit is 30, platelet count 229. ASSESSMENT/PLAN: A 40-year-old male with right gluteal abscess. 1. Right gluteal abscess. At this time, continue dressing changes b.i.d. with Vashe. 2. Sepsis at this time being managed by the hospitalist service. 3. End-stage renal disease currently on dialysis. cc: Sigifredo Machuca MD
[2016-09-08 06:54] LABS: CALCIUM 6.6 mg/dL (8.8-10.2)
[2016-09-08] MEDS: PRILOSEC PO SCH (08:51)
--- NOTE | 2016-09-08 09:11 | PROGRESS NOTE ---
DATE: 09/08/2016 SUBJECTIVE: Mr. Gutierrez is comfortable, sleeping soundly. Breathing comfortably. PHYSICAL EXAMINATION: Vital Signs: Temperature 98 degrees, pulse 99, respirations 23, blood pressure 108/50. HEENT: Pupils are equal and round. Lungs: Clear in all lung [place]. Cardiovascular Examination: Regular rhythm and rate without murmur or S3. Abdomen: Soft. Skin: Warm and dry. LABORATORY DATA: White count 15,200, hematocrit 30, platelet count 229,000. Sodium 133, potassium 5.6, chloride 92, bicarb 24, BUN 71, creatinine 12, blood sugars 208, 269, 223. Calcium was 6.6. ASSESSMENT AND PLAN: 1. Right gluteal abscess. Continue dressing changes. Seems to be improving. 2. Sepsis which has resolved. 3. End-stage renal disease. Continue dialysis. Volume status and electrolytes look good. 4. He had an excision of a right gluteal abscess. 5. Diabetes mellitus type 2. Sugars appear to still be running in the 200s. I have been slowly going up on his insulin and we will bump it up a little bit more. cc: Gilson Truong MD
[2016-09-08] MEDS ORDERED: TIGHT: 0.2 ML/HR MISC PRN (09:49)
[2016-09-08] MEDS ORDERED: NS 2,000 ML MISC PRN (09:49)
[2016-09-08] MEDS ORDERED: HEPARIN IV PRN (09:49)
--- NOTE | 2016-09-08 10:24 | PROGRESS NOTE ---
DATE: 09/08/2016 SUBJECTIVE: Patient is sitting up in bed. He is awake and alert. He has not eaten his breakfast yet. He denies any pain aside from his wounds. OBJECTIVE: Vital Signs: Temperature 98 degrees, pulse 99, respiratory rate 23 , blood pressure 108/50. Intake 1.4 L. Output none. General: This is a middle-aged gentleman resting in bed. He is awake and alert. No acute distress. HEENT: Normocephalic, atraumatic. Oral mucosa is moist. Neck: Supple. Trachea midline. No JVD noted. Cardiovascular: Regular rate and rhythm. No murmur is appreciated. Pulmonary: Equal excursion. He is clear bilaterally. He has no increased work of breathing. Abdomen: Soft, with positive bowel sounds. : Not inspected. He has minimal void with hemodialysis assist. Extremities: No pretibial edema. No clubbing, cyanosis. He has an AV fistula left upper extremity. There is an area of about 3 cm of ulceration that is actually somewhat dry. He has a positive thrill to the area distal from this. Integumentary: Skin is warm and dry otherwise. LAB DATA: WBC of 15.2, hemoglobin 9.4. Sodium 133, potassium 5.6, CO2 17, BUN 71, creatinine 12.0, calcium 6.6. ASSESSMENT AND PLAN: 1. End-stage renal disease. Report from the dialysis nurse is that the patient has requested to come off early from his dialysis treatment every time while he has been in the hospital. I did discuss with the patient the importance of him staying on treatment his entire treatment and that we would adjust his dialysis machine as needed if he was having issues with cramping. He has an AV fistula that does have an area of ulceration above an accessible portions. We have asked the dialysis nurse to attempt to cannulate below this area and if possible we will begin using his fistula and hopefully will be able to remove the catheter soon. He will dialyze on a 2 K bath/UF to dry weight, 4 hour treatment today. 2. Bacteremia, coagulase-negative Staph. Followed by primary and ID. Again, we will try to use the fistula today and if successful will have the catheter removed as soon as possible. 3. Electrolytes, acid-base balance, anemia. These are all stable on a 2 K bath today. 4. Hypotension. He is chronic with hypotension. He is off norepinephrine right now. Continue to monitor closely. Seen, data reviewed, discussed with Sade Paz on 09/08/16. I agree with the above assessment and plan of care. rg Dictated by BOOM Roberson for Michael Hubbard MD cc: Michael Hubbard MD [facility]
[2016-09-08] MEDS: VANCOMYCIN 1 GM/NS 1 GM/250 ML IVPB IV SCH (12:09)
[2016-09-08] MEDS ORDERED: DILAUDID ONE (13:42)
[2016-09-08] MEDS: AFRIN NASAL SPRAY NAS SCH ×2 (13:46→20:57)
--- NOTE | 2016-09-08 15:54 | Diag Imaging Result Document ---
PROCEDURE NAME: PELVIS W/O CONTRAST - 09/08/2016 CT PELVIS WITHOUT CONTRAST: FINDINGS: There is subcutaneous air and edema in the right buttocks. This is primarily in the subcutaneous tissues but extends adjacent to the gluteus karolyn muscle. No well defined fluid collection or abscess. The bowel loops in the pelvis are not dilated. Prominent atherosclerosis. The urinary bladder is only mildly distended. No free fluid within the pelvis. IMPRESSION: Subcutaneous air and inflammation primarily in the superficial fat near the right buttocks but no well defined fluid collection or abscess.
--- NOTE | 2016-09-08 18:46 | PROGRESS NOTE ---
DATE: 09/08/2016 PRESENT ILLNESS: The patient has an infection in the right buttock hat tis indurated, that has minimal serous drainage. Originally the patient appeared to have purulent conjunctivitis but this has cleared. MEDICATIONS: The patient is on vancomycin given after each dialysis. The patient also has been getting Cipro eye drops. PHYSICAL EXAMINATION: Vital Signs: Temperature is 97.9 degrees, pulse 117 respirations 25, blood pressure 124/40. General: This is an obese, young male, who is in no acute distress. Lungs: Clear to auscultation. Cardiovascular: Regular heart rate. Abdomen: Soft and not tender. Genitalia: The scrotum was not enlarged or tender. Perineum: The right buttock area was indurated and tender. There was a small amount of serous drainage from a shallow ulcerated area. Neurologic: Patient is alert. He can move his extremities. There is no tremor. LABORATORIES AND X-RAY: A CBC today showed a white count of 15,200, hemoglobin 9.4, and platelet count 229,000. Creatinine is 12. CT scan of the pelvis showed right buttock subcutaneous air and inflammation in the superficial fat. No abscess was seen. ASSESSMENT AND PLAN: The patient has a buttock infection. I plan to continue vancomycin. Dr. Weiss is to be seeing the patient tonight to see if any further surgery needs to be undertaken. COMORBIDITIES: Include end-stage renal disease, hemodialysis, diabetes, and morbid obesity. cc: Mikey Ahn MD
[2016-09-09] MEDS: CILOXAN OPHTH SOLN BOTH EYES SCH ×2 (00:01→03:50)
[2016-09-09] MEDS: DILAUDID IV PRN ×4 (02:09→23:56)
[2016-09-09] MEDS: DUONEB (A & A) INH SCH ×3 (03:39→15:30)
[2016-09-09] MEDS: HEPARIN SUBQ SCH ×4 (05:19→20:48)
[2016-09-09] MEDS ORDERED: DILAUDID IM ONE (05:50)
[2016-09-09] MEDS ORDERED: DILAUDID IV ONE ×2 (05:50→05:51)
[2016-09-09] MEDS ORDERED: DILAUDID ONE (05:50)
[2016-09-09] MEDS: HUMALOG SUBQ SCH ×5 (06:11→20:48)
[2016-09-09] MEDS ORDERED: INSULIN PEN NEEDLES ONE (06:12)
[2016-09-09] MEDS: HUMULIN 70/30 SUBQ SCH (06:13)
--- NOTE | 2016-09-09 06:30 | PROGRESS NOTE ---
DATE: 09/09/2016 SUBJECTIVE: No major issues reported by the nursing staff. I did discuss his care with Dr. Hubbard over the phone yesterday. Also reviewed a CT scan that was done yesterday. Patient reports still hurting on the area. Nurses report that he is starting to refused dressing changes. OBJECTIVE: Vital Signs: The patient is currently afebrile. His vital signs have been stable. General: No acute distress. Resting comfortably. Actually resting on his right gluteal cheek. Cardiovascular: Regular rate and rhythm. Lungs: Grossly clear. Abdomen: Soft, nontender, nondistended. Extremities: Dressing to the right gluteal area removed. Wound probe. Overall appears smaller. There was no active drainage. There is some area of what appears to be some slight skin discoloration and induration around the wound. The Q-Tip approved under this area. I did not feel any other drainable abscess is at this time. Repacked the wound with Vashe gauze. The smell overall has improved. LABORATORY: Currently pending. ASSESSMENT/PLAN: A 40-year-old, male with right gluteal abscess. 1. Right gluteal abscess: At this time, had an extensive discussion with the patient. I reviewed his CT scan and compared it to his previous CT scan. To my view, the area is improving and smaller. There is some air in the wound, but I suspect that is related to the packing and the previous drainage of an abscess. There is no new drainable fluid collections noted on the CT scan. He has no other area that appeared to be amenable to drainage on physical exam. He has areas of induration. There are some tissue that is very thickened and tender, but I suspect any more debridement would make the wound more difficulty to heal. The patient has significant vascular disease and I suspect any removal of skin on debridement would cause this wound to take a long time to heal and would likely need a wound vacuum- assisted closure. At this time, given the fact that there is no new drainable abscess, I would like to continue with his Vashe packings wet-to-dry twice a day. He is also on antibiotics which I would continue. We need to encourage the patient to allow the nurses to do dressing changes. 2. Sepsis. At this time, being managed by the Hospitalist Service. 3. End-stage renal disease. Currently on dialysis. cc: Sigifredo Machcua MD
[2016-09-09] MEDS ORDERED: TORADOL PO ONE (08:28)
[2016-09-09] MEDS: PRILOSEC PO SCH (08:57)
[2016-09-09] MEDS: BACTROBAN OINTMENT TOP SCH ×3 (08:57→20:45)
--- NOTE | 2016-09-09 09:37 | PROGRESS NOTE ---
DATE: 09/09/2016 SUBJECTIVE: His pain is perhaps a little better today than yesterday. He has been able to have bowel movements and eat. No shortness of breath. OBJECTIVE: Vital Signs: Blood pressure 94/35, heart rate 97, respirations 14, afebrile. Intake and output: Intake 1.2 L. Output 2 L. General: No acute distress. Skin: Warm and dry. HEENT: Conjunctivae are pink. Neck: Neck veins are not visible. Heart: Regular. Lungs: Have equal breath sounds. No crackles. Abdomen: Obese and soft. Bowel sounds are present. Extremities: Have no edema, clubbing, or cyanosis. LABORATORY DATA: None today. IMPRESSIONS: 1. Bacteremia. We will attempt to cannulate his fistula tomorrow and then remove his tunneled catheter. Repeat blood cultures are negative. Continue vancomycin. 2. Dialysis access. I removed the eschar from his left arm fistula. There is a small amount of fibrinous exudate and there is still an ulceration present. We will clean it with soap and water and dress with mupirocin. Cannulate away from the ulcer. 3. Gluteal abscess. Continue antibiotics. 4. The patient is requesting a single dose of Toradol. He states he takes 1 a week to help with pain. I will allow him to have 1 but no more. cc: Michael Hubbard MD
[2016-09-09] MEDS: AFRIN NASAL SPRAY NAS SCH ×2 (09:44→20:45)
--- NOTE | 2016-09-09 13:00 | PROGRESS NOTE ---
DATE: 09/09/2016 SUBJECTIVE: Mr. Gutierrez is awake and alert, breathing comfortably. He still gets a lot of pain from his decubitus and especially when they change the dressing. OBJECTIVE: Vital Signs: Temperature 98.1 degrees. He remains afebrile. Pulse 97, respirations 14, blood pressure 94/35. HEENT: Pupils are equal, round, reactive to light and accommodation. Oral and nasal mucosa unremarkable. Neck: CVP less than 6 cm. Respiratory: Lungs are clear anterolateral Cardiovascular: Regular rhythm and rate, without murmur or S3. Abdomen: Soft. Skin: Warm and dry. LABORATORIES: Blood sugars have been labile; 282, 128, 316. Laboratories from this morning reviewed. His CBC from yesterday showed hematocrit stable at 30. Electrolytes from yesterday were stable, potassium a little bit high. ASSESSMENT AND PLAN: 1. Bacteremia. Attempt to cannulate his fistula apparently today and remove his tunneled catheter. Repeat blood cultures were negative. He is to continue his vancomycin. 2. Dialysis access. He had an eschar removed from the left arm fistula with a small amount of fibrinous exudate and there is still ulceration present. The plan this is to clean it up with soap and water, dress it with mupirocin topically, and cannulate away from the ulcer. 3. Gluteal abscess. Continue antibiotics. 4. Diabetes mellitus. Sugars were somewhat labile. In regards to his right gluteal abscesses, at this time had an extensive discussion with the patient. Dr. Machuca is following. Reviewed his CT scan and a previous CT scan. The area is improving and appears smaller. Continue the present topical care. Need to decide what to do about management as an outpatient. Ask Social Service to help. cc: Gilson Truong MD
--- NOTE | 2016-09-09 18:04 | PROGRESS NOTE ---
DATE: 09/09/2016 PRESENT ILLNESS: The patient has a right buttock infection. It has been drained in the past. MEDICATIONS: The patient is being given vancomycin after each dialysis. PHYSICAL EXAMINATION: Vital Signs: Temperature is 97.8 degrees, pulse 97, respirations 16, blood pressure 89/51. Generally: This is a very obese young male. He is in no acute distress. Cardiovascular: Heart rate is regular. Lungs: Clear to auscultation. Extremities: Patient's left arm has his AV fistula which is not draining and there is an eschar on it however. Neck and chest: The patient has a dialysis catheter in the internal jugular vein. That site is also not swollen or tender. Abdomen: Soft and nontender. LABORATORY AND X-RAY: There is no new x-ray study and there is no new laboratory for today. ASSESSMENT AND PLAN: Patient has a buttock infection. Dr. Machuca saw the patient yesterday and felt like that it was improving. My plan is to continue with vancomycin. COMORBIDITIES: Include end-stage renal disease, hemodialysis, diabetes mellitus, and morbid obesity. cc: Mikey Ahn MD
[2016-09-10] MEDS: HEPARIN SUBQ SCH ×3 (04:12→21:15)
[2016-09-10] MEDS: DILAUDID IV PRN ×4 (04:12→21:10)
[2016-09-10] MEDS: DUONEB (A & A) INH SCH ×4 (06:22→23:29)
[2016-09-10] MEDS: HUMALOG SUBQ SCH ×4 (06:28→21:00)
[2016-09-10] MEDS: HUMULIN 70/30 SUBQ SCH (06:29)
--- NOTE | 2016-09-10 06:36 | PROGRESS NOTE ---
DATE: 09/10/2016 SUBJECTIVE: Patient doing well. He said his pain is less. I reviewed notes from wound care. His wound overall appears to be improving. OBJECTIVE: Vital Signs: Patient is currently afebrile. His vital signs are stable. General: Resting comfortably. No acute distress. Cardiovascular: Regular rate and rhythm. Lungs: Grossly clear. Abdomen: Soft, nontender, nondistended. Extremities: Dressing to the right gluteal area intact, no significant change. Smell overall improved. LABORATORY: Currently pending. ASSESSMENT AND PLAN: A 40 year male with a right gluteal abscess. 1. Right gluteal abscess. At this time, I suspect the wound is healing. I suspect given his peripheral vascular disease and significant internal iliac disease it will take a while for this to heal up completely. At this time, I do not see any areas of undrained abscesses so I would recommend continuing Vashe wet-to-dry dressing changes b.i.d. I suspect any more of an incision and debridement may require a longer duration of healing and likely a wound VAC. We will continue to follow him as is he is currently on antibiotics. 2. Sepsis at this time being managed by the hospitalist service. 3. End-stage renal disease currently on dialysis. We will defer to nephrology. cc: Sigifredo Machuca MD MTDD
[2016-09-10] MEDS ORDERED: TIGHT: 0.2 ML/HR MISC PRN (07:38)
[2016-09-10] MEDS ORDERED: NS 2,000 ML MISC PRN (07:38)
[2016-09-10] MEDS ORDERED: HEPARIN IV PRN (07:38)
[2016-09-10] MEDS: AFRIN NASAL SPRAY NAS SCH ×2 (08:25→21:15)
[2016-09-10] MEDS: PRILOSEC PO SCH (08:26)
[2016-09-10] MEDS: BACTROBAN OINTMENT TOP SCH ×2 (08:26→20:30)
--- NOTE | 2016-09-10 08:32 | PROGRESS NOTE ---
DATE: 09/10/2016 SUBJECTIVE: Mr. Gutierrez feels good, breathing comfortably. I think we can move him to the floor today. Pain is diminished, although still uncomfortable. It seems to come and go, especially after dressing change. OBJECTIVE: Vital Signs: Temp 98.6 degrees, pulse 95, respirations 20, blood pressure 86/32. HEENT: Pupils are equal, round. CVP less than 6 cm. Neurologic: Alert and oriented x3. Lungs: Clear in all lung [place]. Cardiovascular: Regular rhythm and rate without murmur or S3. Abdomen: Soft. Skin: Warm and dry. : Urine output with dialysis appears to be close to 3 L. LABS: Review from the tenth: White count still high at 15,200, hematocrit is 30, platelet count 220,000. Chemistries: No new labs. Blood sugars 229, 208, and he had a 410 today. Had been increasing his insulin. Will watch his pattern a little while longer. ASSESSMENT AND PLAN: 1. Right gluteal abscess. Suspect the wound is healing. Given his peripheral vascular disease and significant vascular insufficiency, it may take awhile. Followed by Dr. Machuca and Gypsy Dhaliwal. 2. Sepsis, which appears to have improved. 3. End-stage renal disease. Continue dialysis. Volume status looks good. Electrolytes and acid base looks pretty good. 4. Note his right buttock infection has been drained in the past. The patient is still on vancomycin after dialysis. 5. Noted sugars are bouncing around a little bit. Will watch the pattern. Adjust insulin accordingly. Looking at his orders, I do not see anything to change at this point. I will see if we can move him to the floor. cc: Gilson Truong MD
--- NOTE | 2016-09-10 10:46 | PROGRESS NOTE ---
DATE: 09/10/2016 SUBJECTIVE: The patient resting in bed. He has no complaints. He has been able to move around some in the bed. OBJECTIVE: Vital Signs: Temperature 97.8 degrees, pulse 95, respiratory rate 20 , blood pressure 120/32. Intake 2 L. Output not measured. PHYSICAL EXAMINATION: General: Middle-aged gentleman resting in bed. He is awake and alert in no acute distress. HEENT: Normocephalic, atraumatic. Oral mucosa moist. MENDEL. Conjunctivae pink. Neck is thick, supple. Unable to discern JVD. Cardiovascular: Regular rate and rhythm. No murmur or gallop appreciated. Pulmonary: He has equal excursion. He is clear bilaterally. Abdomen is soft, obese, positive bowel sounds. : Not inspected. Minimal void with hemodialysis assist. Extremities: No clubbing, cyanosis or edema. He is moving all extremities. Integumentary: Skin is warm and dry. The area of eschar to the fibrin area just proximal of his fistula is open to air. It is clean and dry. No drainage. LABORATORY DATA: I have no labs today. IMPRESSION: 1. Bacteremia. We will plan to dialyze him today and will attempt to cannulate distal of the ulceration. If this is successful, will request to have his tunneled dialysis catheter removed. 2. End-stage renal disease. Today is his routine dialysis day. He has not had labs. They have been stable thus far. 2 K bath/UF to dry weight, 4-hour treatment. 3. Gluteal abscess followed by primary. Continue current treatment. Blood pressure controlled. 4. Fluid volume. He is not overloaded. Dictated by BOOM Roberson for Michael Hubbard MD Seen, data reviewed, discussed with Sade Paz on 09/10/16. I agree with the above assessment and plan of care. cc: Michael Hubbard MD [facility]
[2016-09-10] MEDS: VANCOMYCIN 1 GM/NS 1 GM/250 ML IVPB IV SCH (10:58)
[2016-09-10] MEDS: NORCO-5 PO PRN (23:40)
[2016-09-11] MEDS: DILAUDID IV PRN ×5 (01:32→20:27)
[2016-09-11] MEDS: DUONEB (A & A) INH SCH ×4 (02:40→19:45)
[2016-09-11] MEDS: NORCO-5 PO PRN ×3 (04:42→23:40)
[2016-09-11] MEDS ORDERED: SODIUM CHLORIDE 0.9% 10 ML ONE (05:21)
[2016-09-11] MEDS: HEPARIN SUBQ SCH ×3 (05:29→20:31)
--- NOTE | 2016-09-11 07:19 | PROGRESS NOTE ---
DATE: 09/11/2016 SUBJECTIVE: The patient moved from the ICU to the floor. Reports that he is having less pain in his right hip. He does report some pain in his left hip. Reviewed his notes from wound care. Overall, his wound appears to be improving. OBJECTIVE: Vital Signs: Patient is currently afebrile. His vital signs are stable. General: Resting comfortably. No acute distress. Cardiovascular: Regular rate and rhythm. Lungs: Grossly clear. Abdomen: Soft, nontender, nondistended. Extremities: Dressing on the right gluteal area seems to be intact. No significant change. LABORATORIES: Reviewed. ASSESSMENT AND PLAN: A 40-year-old male with right gluteal abscess. 1. Right gluteal abscess. At this time, the wound is healing. Would recommend continue on all antibiotics. 2. Sepsis. At this time, being managed by the Hospitalist Service. 3. End-stage renal disease. Currently being managed by Nephrology. 4. Left hip pain. May be related to his lying down on the area. I do not see anything obvious on CT scan. We will continue to monitor for now. cc: Sigifredo Machuca MD
[2016-09-11] MEDS: HUMALOG SUBQ SCH ×4 (07:34→20:31)
[2016-09-11] MEDS: HUMULIN 70/30 SUBQ SCH (07:36)
[2016-09-11 10:43] LABS: HEPATITIS PROFILE ACUTE SEE COMMENTS
[2016-09-11] MEDS: PRILOSEC PO SCH (10:52)
[2016-09-11] MEDS: AFRIN NASAL SPRAY NAS SCH ×2 (10:53→23:21)
[2016-09-11] MEDS: BACTROBAN OINTMENT TOP SCH ×3 (10:54→20:32)
--- NOTE | 2016-09-11 13:46 | PROGRESS NOTE ---
DATE: 09/11/2016 The sacral abscess is healing but is still very painful when they change his dressing. VITAL SIGNS: Temp 98.2 degrees, pulse 100, respirations 16, blood pressure 110/48. CVP less than 6 cm.Lungs: Clear in all lung [place]. Cardiovascular: Regular rhythm and rate without murmur or S3. Urine output about 3 L output. LABORATORIES: No recent electrolytes. Blood sugar 156, 177, 217, 124. ASSESSMENT AND PLAN: 1. Right gluteal abscess healing. Continue present treatment. Recommend he go to rehab. It is going to take extensive time to heal. Will need dressing changes and a lot of help. 2. Sepsis, improved. 3. End-stage renal disease. Continue hemodialysis. Volume status, electrolytes and acid base look good. 4. Left hip pain. I did not see anything on CT scan. His nutrition is good. 5. Diabetes mellitus. His blood sugars appear better controlled. He is still on vancomycin after dialysis. His cultures have grown Staph hemolyticus in the wound. No growth in the blood culture. There was only 1 blood culture. Staph hemolyticus is resistant to oxacillin. Continue the vancomycin. cc: Gilson Truong MD
--- NOTE | 2016-09-11 14:44 | PROGRESS NOTE ---
DATE: 09/11/2016 SUBJECTIVE: Patient resting in bed. He has no complaints today. He has been transitioned form the ICU to a regular medical room. OBJECTIVE: Vital Signs: Temperature 98.2 degrees, pulse 101, respiratory rate 16, blood pressure 110/48. Intake 550 mL. Output 3.2 L. General: Middle-aged gentleman resting in bed. No acute distress. HEENT: Normocephalic, atraumatic. Conjunctivae pink. Neck: Thick , supple. No JVD. Cardiovascular: Regular rate and rhythm without murmur or gallop. Pulmonary: He has equal excursion. He is clear bilaterally. Abdomen: Soft, positive bowel sounds. : Not inspected. He has hemodialysis assist. Extremities: No clubbing, cyanosis or edema. Integumentary: Skin is warm and dry. The fibrin area proximal of his fistula is covered. LABORATORY DATA: No labs today. ASSESSMENT AND PLAN: 1. Bacteremia. We were able to dialyze with fistulae yesterday. I hope to have the catheter removed as soon as possible. Thursday if able to use fistula on Thursday. rg 2. End-stage renal disease. Continue on Thursday, Thursday, Thursday. We will check labs in the morning before dialysis. 3. Gluteal abscess, followed by primary. 4. Fluid volume. He is not overloaded. 5. Blood pressure currently controlled. Seen, data reviewed, discussed with Sade Paz on 09/11/16. I agree with the above assessment and plan of care. rg Dictated by BOOM Roberson for Michael Hubbard MD cc: Michael Hubbard MD [facility]
[2016-09-11] MEDS: CALMOSEPTINE OINTMENT TOP PRN (15:46)
--- NOTE | 2016-09-11 17:15 | PROGRESS NOTE ---
DATE: 09/11/2016 PRESENT ILLNESS: The patient has a right buttock infection. It has been drained. MEDICATIONS: The patient receives vancomycin after each dialysis. PHYSICAL EXAMINATION: Vital Signs: Temperature is 98 degrees, pulse 65, respirations 18, blood pressure 100/74. General: This is an obese, ill-appearing young male. He is in no acute distress. Lungs: Clear to auscultation. Cardiovascular: Heart rate is regular. Extremities: The patient in his left arm has an AV fistula which has a large dressing around it which is intact. The patient's right buttock has an area that is indurated but not as firm as it was previously and also the area appears to be getting smaller. It is draining a serosanguineous fluid. LAB AND X-RAY: There is no new lab or x-ray today. ASSESSMENT AND PLAN: Patient has a buttock infection. I plan to continue vancomycin. I am also going to order for tomorrow a CBC. COMORBIDITIES: Include end-stage renal disease, hemodialysis, diabetes mellitus, and morbid obesity. cc: Mikey Ahn MD
[2016-09-12] MEDS: DILAUDID IV PRN ×8 (00:44→22:02)
[2016-09-12] MEDS: DUONEB (A & A) INH SCH ×4 (03:20→22:00)
[2016-09-12] MEDS: HEPARIN SUBQ SCH ×3 (05:52→20:48)
[2016-09-12 06:11] LABS: MANUAL DIFF NEEDED? NO
--- NOTE | 2016-09-12 06:17 | PROGRESS NOTE ---
DATE: 09/12/2016 SUBJECTIVE: The patient is doing well. He still reports some discomfort in his right hip and his left hip. No new issues. OBJECTIVE: Vital Signs: The patient is currently afebrile. His vital signs have been stable. General: No acute distress. Cardiovascular: Regular rate and rhythm. Lungs: Grossly clear. Abdomen: Soft, nontender, nondistended. Extremities: The patient is currently laying on the right side with the gluteal area with dressing in place. No significant change. LABORATORIES: Reviewed. ASSESSMENT AND PLAN: A 40-year-old male with a right gluteal abscess. 1. Right gluteal abscess. At this time, the wound is healing. Recommend continued wound care and antibiotics. 2. Sepsis. At this time being managed by the hospitalist service. 3. End-stage renal disease. Currently being managed by the nephrology service. 4. Left hip pain. At this time, I do not see any obvious injury on CT scan of his left hip. I think it is related to laying on the area for long periods of time. We will monitor for now. cc: Sigifredo Machuca MD
[2016-09-12 06:31] LABS: BASO% 0.3 % (0.0-0.8); EOS# 0.18 X1000 (0.0-0.7); EOS% 2.5 % (0.0-10.0); HEMATOCRIT 30.4 % (42.0-52.0); HEMOGLOBIN 9.2 g/dL (14.0-18.0); IMM GRAN# 0.25 X1000 (0.0-0.04); IMM GRAN% 3.5 % (0.0-0.5); LYMPH# 1.49 X1000 (1.2-3.4); LYMPH% 20.8 % (20.5-51.1); MCH 30.3 PG (27-31); MCHC 30.3 g/dL (33-37); MONO# 0.92 X1000 (0.11-0.59); MONO% 12.8 % (1.7-9.3); NEUT% 60.1 % (42.2-75.2); PLT 317 X1000 (130-400); RBC 3.04 XMIL (4.7-6.1)
[2016-09-12] MEDS: HUMALOG SUBQ SCH ×4 (06:33→20:48)
[2016-09-12] MEDS: HUMULIN 70/30 SUBQ SCH (06:34)
[2016-09-12 06:37] LABS: ALBUMIN 2.5 g/dL (3.5-5.0); CALCIUM 6.1 mg/dL (8.8-10.2); POTASSIUM 4.9 mmol/L (3.5-5.1)
[2016-09-12] MEDS ORDERED: NS 2,000 ML MISC PRN (07:17)
[2016-09-12] MEDS ORDERED: HEPARIN IV PRN (07:17)
[2016-09-12] MEDS ORDERED: TIGHT: 0.2 ML/HR MISC PRN (07:17)
[2016-09-12] MEDS ORDERED: HEPARIN ONE (08:26)
[2016-09-12] MEDS ORDERED: NS 2,000 ML ONE (08:26)
[2016-09-12] MEDS: AFRIN NASAL SPRAY NAS SCH ×2 (09:08→20:59)
[2016-09-12] MEDS: PRILOSEC PO SCH (09:08)
[2016-09-12] MEDS: BACTROBAN OINTMENT TOP SCH ×3 (09:08→20:59)
[2016-09-12] MEDS ORDERED: EPOGEN SUBQ ONE (09:46)
--- NOTE | 2016-09-12 10:32 | PROGRESS NOTE ---
DATE: 09/12/2016 SUBJECTIVE: He states he is feeling some better today. We have been able to cannulate his fistula x2 without disturbing the area of ulceration. I am not able to visualize that currently because it is hidden by his needles. OBJECTIVE: Vital Signs: Blood pressure 100/48. Heart rate 95. Respirations 16. Afebrile. Generally: He is a middle-aged man, no distress. Skin: Warm and dry. Conjunctivae are pink. Neck: Neck veins not visible. Heart: Regular without gallops. Lungs: Equal and clear. Abdomen: Soft, nontender. Bowel sounds present. Extremities: No edema, clubbing, or cyanosis. LABORATORY DATA: Sodium 135. Potassium 4.9. Chloride 96. Bicarbonate 22. BUN 54. Creatinine 8.6. Hemoglobin 9.2. IMPRESSION: 1. End-stage kidney disease. He is having his routine hemodialysis today. Cannulating fistula. 2. Bacteremia. Continue antibiotics. I will ask Dr. Machuca to remove his tunneled catheter on Thursday. 3. Abscess. Continue antibiotics. 4. Anemia. His hemoglobin has fallen modestly during his admission. We will dose with erythropoietin today. cc: Michael Hubbard MD
[2016-09-12] MEDS ORDERED: DILAUDID ONE (10:52)
[2016-09-12] MEDS: VANCOMYCIN 1 GM/NS 1 GM/250 ML IVPB IV SCH (11:47)
--- NOTE | 2016-09-12 15:25 | PROGRESS NOTE ---
DATE: 09/12/2016 SUBJECTIVE: Mr. Gutierrez is feeling better every day. There is still a good deal of pain in his sacral area. OBJECTIVE: Vital Signs: Afebrile, temperature 98.6 degrees. Pulse 90, respirations 16, blood pressure 100/48. HEENT: Pupils are equal and round. Lungs: Clear in all lung [place]. Cardiovascular: Regular rhythm and rate without murmur or S3. Abdomen: Soft. Skin: Warm and dry. Weight: His weight looks good. He got almost 2.5 liters off on dialysis. LABORATORY DATA: Labs were reviewed from today. White count 7180, hematocrit 30, platelet count 317,000. Sodium 135, potassium 4.9, chloride 96, bicarbonate 22, BUN 54, creatinine 8.6. Blood sugar 266, 184, and 251. Calcium was 6.1. Phosphorus 8. ASSESSMENT AND PLAN: 1. End-stage kidney disease. Continue hemodialysis. Volume status looks good. He has got a cannulating fistula. 2. Bacteremia, on antibiotics. He as a gluteal abscess. Continue topical management. It has been debrided. It is a right gluteal abscess. 3. Left hip pain, aware. 4. Diabetes mellitus. Sugars appear pretty well controlled. 5. The patient receives Epogen 20,000 units subcutaneously, I think, with dialysis, and now he is on vancomycin 1 gram after dialysis, Prilosec 40 mg a day. He gets 70/30 and is up to 18 units twice a day. He is getting Dilaudid 1 mg IV p.r.n. He usually gets it before dressing changes. He is on heparin 5000 units subcutaneously every 8 hours. cc: Gilson Truong MD
[2016-09-12] MEDS: CALMOSEPTINE OINTMENT TOP PRN (15:31)
[2016-09-12] MEDS: NORCO-5 PO PRN (20:48)
[2016-09-13] MEDS: DILAUDID IV PRN ×7 (02:02→22:00)
[2016-09-13] MEDS: DUONEB (A & A) INH SCH ×4 (03:25→20:00)
[2016-09-13] MEDS: HEPARIN SUBQ SCH ×3 (07:32→22:00)
[2016-09-13] MEDS: HUMALOG SUBQ SCH ×3 (07:33→22:00)
[2016-09-13] MEDS: HUMULIN 70/30 SUBQ SCH (07:33)
[2016-09-13] MEDS: PRILOSEC PO SCH (08:42)
[2016-09-13] MEDS: AFRIN NASAL SPRAY NAS SCH ×2 (08:43→22:01)
[2016-09-13] MEDS: BACTROBAN OINTMENT TOP SCH ×3 (08:43→22:01)
--- NOTE | 2016-09-13 10:50 | PROGRESS NOTE ---
DATE: 09/13/2016 SUBJECTIVE: Mr. Gutierrez feels better. He still has discomfort when they change the dressing, but otherwise no pain. Breathing comfortably. Afebrile. OBJECTIVE: Vital Signs: Temp 98.1 degrees, pulse 93, respirations 18, blood pressure 128/40. Eyes: Pupils are equal and round. Lungs: Clear in all lung [place]. Cardiovascular exam: Regular rhythm and rate without murmur or S3. Abdomen: Soft. Skin: Warm and dry. : Good urine output at 2300. LABS: Blood sugar: 256, 88, 197. ASSESSMENT AND PLAN: 1. End-stage renal disease. They were able to use his left arm arteriovenous graft yesterday. Has a tunnel catheter in the left side; it sounds like we are planning on stopping that next week. 2. Bacteremia on antibiotics. Suspect this was from this gluteal abscess. Continue topical treatment. This is improving. Surgery following. Gypsy Dhaliwal following. 3. Left hip pain is better. 4. Diabetes mellitus type 2. Sugars appear well-controlled. Looking at his orders, I do not see any change. At this point he is on vancomycin after dialysis, and that is really his sole antibiotic. His microbiology: He grew out Staph hemolyticus which is resistant to oxacillin. cc: Gilson Truong MD
--- NOTE | 2016-09-13 12:00 | PROGRESS NOTE ---
DATE: 09/13/2016 Mr. Jalil Gutierrez is status post incision, drainage and debridement of a right buttock abscess per Dr. Machuca. I took the dressing down. The wound appears to be clean. We will continue dressing changes. cc: Charlene Weiss MD
[2016-09-14] MEDS: HUMALOG SUBQ SCH ×5 (01:27→22:09)
[2016-09-14] MEDS: DILAUDID IV PRN ×8 (01:47→22:29)
[2016-09-14] MEDS: DUONEB (A & A) INH SCH ×4 (03:48→21:08)
[2016-09-14] MEDS: HUMULIN 70/30 SUBQ SCH (06:30)
--- NOTE | 2016-09-14 10:02 | PROGRESS NOTE ---
DATE: 09/14/2016 Mr. Jalil Gutierrez is a 40-year-old, black male who is on chronic hemodialysis. He has undergone an incision and drainage of an infection involving his right buttock per Dr. Machuca. He is undergoing daily dressing changes and also is receiving IV antibiotics which is vancomycin with dialysis. His white blood cell count has returned to normal. On inspection of the wound, there is still some purulence that can be expressed. It is being dressed daily and packed. cc: Charlene Weiss MD
[2016-09-14] MEDS: PRILOSEC PO SCH (10:28)
[2016-09-14] MEDS: AFRIN NASAL SPRAY NAS SCH (10:34)
[2016-09-14] MEDS: HEPARIN SUBQ SCH ×3 (10:34→22:29)
[2016-09-14] MEDS: BACTROBAN OINTMENT TOP SCH (10:38)
--- NOTE | 2016-09-14 14:39 | PROGRESS NOTE ---
DATE: 09/14/2016 SUBJECTIVE: Mr. Gutierrez is feeling much better and breathing comfortably. He remains afebrile. OBJECTIVE: Vital signs: Temperature 98, pulse 108, respirations 17, blood pressure 134/37. HEENT: Pupils are equal, round. CVP less than 6 cm. Lungs: Clear in all lung [place]. Cardiovascular: Regular rhythm and rate without murmur or S3. Abdomen: Soft. Skin: Is warm and dry. Good urine output. LABORATORY DATA: Blood sugars 197, 192 196. ASSESSMENT/PLAN: 1. Soft tissue abscess right gluteus is healing. Continue the present topical treatment, continue present antibiotics. 2. End-stage renal disease. Volume status, electrolytes look good. 3. Diabetes mellitus type 2. Blood sugars appear not to be under good control. We need to see about rehab and we will explore his options, no orders to change at this point. cc: Gilson Truong MD
[2016-09-15] MEDS: DILAUDID IV PRN ×6 (02:25→21:15)
[2016-09-15] MEDS: DUONEB (A & A) INH SCH ×4 (03:42→19:27)
[2016-09-15] MEDS: AFRIN NASAL SPRAY NAS SCH ×3 (05:00→21:14)
[2016-09-15] MEDS: BACTROBAN OINTMENT TOP SCH ×3 (05:01→22:55)
[2016-09-15] MEDS: HEPARIN SUBQ SCH ×3 (05:21→21:15)
[2016-09-15 05:36] LABS: MANUAL DIFF NEEDED? NO
[2016-09-15 05:46] LABS: BASO% 0.2 % (0.0-0.8); EOS% 1.5 % (0.0-10.0); HEMATOCRIT 30.6 % (42.0-52.0); HEMOGLOBIN 9.3 g/dL (14.0-18.0); IMM GRAN# 0.05 X1000 (0.0-0.04); IMM GRAN% 0.8 % (0.0-0.5); LYMPH# 1.51 X1000 (1.2-3.4); LYMPH% 23.3 % (20.5-51.1); MCH 30.4 PG (27-31); MCHC 30.4 g/dL (33-37); MONO# 0.75 X1000 (0.11-0.59); MONO% 11.6 % (1.7-9.3); MPV 9.3 FL (7.4-10.4); NEUT% 62.6 % (42.2-75.2); PLT 316 X1000 (130-400); RBC 3.06 XMIL (4.7-6.1)
[2016-09-15 06:05] LABS: ALBUMIN 2.7 g/dL (3.5-5.0); POTASSIUM 5.1 mmol/L (3.5-5.1)
[2016-09-15 06:07] LABS: CALCIUM 5.6 mg/dL (8.8-10.2)
[2016-09-15] MEDS: HUMALOG SUBQ SCH ×4 (06:32→21:14)
[2016-09-15] MEDS: HUMULIN 70/30 SUBQ SCH (06:32)
--- NOTE | 2016-09-15 06:35 | PROGRESS NOTE ---
DATE: 09/15/2016 SUBJECTIVE: Patient doing well. No major issues. OBJECTIVE: Vital Signs: Patient is currently afebrile. His vital signs are stable. General: No acute distress. Cardiovascular: Regular rate and rhythm. Lungs: Grossly clear. Abdomen: Soft, nontender, nondistended. Extremities: Gluteal wound area with dressing in place. No significant change noted. LABORATORY: From the weekend reviewed. Laboratory from this morning reviewed. White blood cell count 6, hematocrit is 30, microbiology reviewed. ASSESSMENT AND PLAN: A 40-year-old male with right gluteal abscess. 1. Right gluteal abscess. At this time wound is healing slowly but healing. Will continue local wound care. 2. Sepsis, this time being managed by the hospitalist service. 3. End-stage renal disease. Currently being managed by the nephrology service. I was asked by Dr. Hubbard to remove his tunneled hemodialysis catheter. Removed today in the operating room. Discussed this with the patient. Will consent and keep him NPO. 4. Left hip pain at this time, we will continue to monitor. cc: Sigifredo Machuca MD
[2016-09-15] MEDS ORDERED: TIGHT: 0.2 ML/HR MISC PRN (06:51)
[2016-09-15] MEDS ORDERED: NS 2,000 ML MISC PRN (06:51)
[2016-09-15] MEDS ORDERED: HEPARIN IV PRN (06:51)
[2016-09-15] MEDS: PRILOSEC PO SCH (08:17)
[2016-09-15] MEDS ORDERED: NS 2,000 ML ONE (08:36)
[2016-09-15] MEDS ORDERED: HEPARIN ONE (08:36)
[2016-09-15] MEDS: VANCOMYCIN 1 GM/NS 1 GM/250 ML IVPB IV SCH (10:27)
[2016-09-15] MEDS ORDERED: DILAUDID ONE (10:52)
--- NOTE | 2016-09-15 11:52 | PROGRESS NOTE ---
DATE: 09/15/2016 TIME SEEN: 0810. SUBJECTIVE: Mr. Gutierrez is resting quietly in bed. He is on his left side. He has a pillow behind his back. He continues to state that he has rectal pain, otherwise, he denies any chest pain or increased work of breathing. OBJECTIVE: His most recent vital signs: Temperature 98 degrees, blood pressure 146/62, heart rate 90, respirations 16. He has had 720 in. He has had 0 recorded out. LABORATORY DATA: His labs show a sodium of 140 potassium 5.1, chloride 95, CO2 of 21. BUN 51, creatinine 10.7, glucose 271. His anion gap is 24. Calcium 5.6, phosphorus 9.6 , albumin 2.7. White count 6.47. Hemoglobin 9.3, hematocrit 30.6 with a platelet count of 316, 000. PHYSICAL EXAMINATION: This is an -Fijian male. He is currently resting in bed. He is in no acute distress. His skin is warm and dry. HEENT: Normocephalic, atraumatic. Conjunctivae pale. He has MENDEL. Mucous membranes are moist. Neck is supple. Trachea midline. No JVD. Cardiovascular: He has regular rate and rhythm. He is without murmur or gallop. Lungs clear to auscultation anteriorly. Equal excursion. He is on room air. Abdomen is large , obese, soft, nontender. Positive bowel sounds. Genitourinary: The patient has minimal void with dialysis assist. His buttocks have not been inspected for wound though it is stated that it is packed from wet-to-dry dressings. Extremities: Continues with lower extremity edema, 1 to 2+. No clubbing or cyanosis. Integumentary: Again, rear buttock area to the left is not inspected with dressing intact. Drainage is noted on his bed and sheets. Neurologic: Alert and oriented x3. ASSESSMENT AND PLAN: 1. End-stage renal disease. The patient is due for his routine dialysis treatment today. He is to be placed on a 2 K bath. We will dialyze him for 3.5 hours. We will attempt to pull patient to his dry weight. 2. Electrolytes and acid-base balance. These remain stable. 3. Anemia. This remains low but stable. 4. Sepsis possibly secondary to wound or right tunnel catheter. Dr. Machuca is currently following the patient. We have plans today for removal of his hemodialysis tunnel catheter and this has been discussed with the patient. The patient is to be kept n.p.o. 5. Abcess is followed by Dr. Machuca. We will give him sorbitol for constipation to take this out of the equation. I would to thank you for allowing us to follow with this patient. Seen, data reviewed, discussed with Yeison Duran on 09/15/16. I agree with the above assessment and plan of care. rg Dictated by BOOM Faustin for Michael Hubbard MD cc: BOOM Faustin MD [facility]
[2016-09-15] MEDS ORDERED: XYLOCAINE 1% ONE (14:44)
[2016-09-15] MEDS ORDERED: MARCAINE 0.25% PF/EPI 1:200,000 ONE (14:44)
--- NOTE | 2016-09-15 14:45 | PROGRESS NOTE ---
DATE: 09/15/2016 SUBJECTIVE: Mr. Gutierrez is feeling better. He is scheduled for dialysis this morning. Remained afebrile. OBJECTIVE: Vital signs: Temperature 98, pulse 90, respirations 16, blood pressure 146/62. HEENT: Pupils are equal, round, CVP less than 6 cm. Lungs: Clear in all lung [place]. Cardiovascular: Regular rhythm and rate without murmur or S3. Abdomen: Soft, nontender, nondistended. Positive bowel sounds. No hepatosplenomegaly. LAB: Today white count 6470, hematocrit was 30, platelet count 316,000. Chemistry. Sodium 140, potassium 5.1, chloride 95, BUN 51, creatinine 10.7, glucose 196, 271, 250. ASSESSMENT AND PLAN: 1. End-stage renal disease patient on routine dialysis, gets dialysis again today. Will begin 2 k bath. 2. Electrolytes and acid base look good. 3. Anemia stable. 4. Sepsis probably secondary to his gluteus abscess and this is improving. Continue antibiotics and topical care, see what we can do about placement opportunities. Pleased with his improvement. 5. Review of his orders I do not see any change at this point. cc: Gilson Truong MD
[2016-09-15] MEDS: DILAUDID ONE ×3 (16:04→17:13)
[2016-09-15] MEDS ORDERED: FENTANYL ONE (16:18)
[2016-09-15] MEDS ORDERED: VERSED ONE ×2 (16:18)
[2016-09-15] MEDS ORDERED: DIPRIVAN 1% ONE (16:19)
--- NOTE | 2016-09-15 21:00 | PROGRESS NOTE ---
DATE: 09/15/2016 PRESENT ILLNESS: The patient has a right buttock infection. It is looking much better. It is smaller. It is not as indurated. MEDICATIONS: The patient receives vancomycin after each dialysis. PHYSICAL EXAMINATION: Vital Signs: Temperature is 98.3 degrees, pulse 97, respirations 18, blood pressure 142/62. General: This is a morbidly obese young male. He is in no acute distress. Lungs: Clear to auscultation. Cardiovascular: Regular heart rate. Right buttock as mentioned above is less swollen. It is less indurated. There is no drainage coming from it at this time. The patient has an AV fistula in the left arm. The site is not erythematous or tender. Thorax: Patient had removal today of his tunneled hemodialysis catheter. This was removed in surgery today by Dr. Gutierrez. The site is not bleeding and it is not swollen. LAB AND X-RAY: The CBC for today shows a white count of 6470, hemoglobin 9.3, and platelet count 316,000. Creatinine is 10.7, the GFR is 7. There is no further lab and there is no radiographic study for today. ASSESSMENT AND PLAN: The patient has a buttock infection. My plan is to continue vancomycin given after each dialysis. COMORBIDITIES: Include end-stage renal disease, hemodialysis, diabetes mellitus, and morbid obesity. cc: Mikey Ahn MD
--- NOTE | 2016-09-15 22:12 | OPERATIVE NOTE ---
PROCEDURE DATE: 09/15/2016 PREP DIAGNOSES: 1. No longer needed hemodialysis catheter. 2. End-stage renal disease. POSTOP DIAGNOSES: 1. No longer needed hemodialysis catheter. 2. End-stage renal disease. PROCEDURE: Removal of tunneled hemodialysis catheter. SURGEON: Sigifredo Machuca MD. TUMBLER OPERATOR: None. ANESTHESIA: MAC with local administered by the surgeon. FINDINGS: As above. COMPLICATIONS: None at time of dictation. EBL: 3 mL. SPECIMENS: Catheter with the tip sent for culture. BRIEF HISTORY: The patient is a 40-year-old male who had tunneled hemodialysis catheter. There is some concern he might have developed bacteremia. Regardless he no longer needed the catheter and is felt that it should be removed. Risks, benefits, alternatives were discussed. All questions answered. DESCRIPTION OF PROCEDURE: After informed consent was obtained, patient brought to the operative theatre, transferred to the operating table, supine position. MAC anesthesia was then performed without complication. The patient's left neck was then prepped and draped sterile fashion. After formal time-out and prepping the left side we used local anesthetic to anesthetize where the cuff of the catheter was at the exit point of the chest on the left side. We used a 15 blade to open up the incision. We were able to identify the cuff, dissected the scar tissue out from around the cuff circumferentially and we removed the catheter in its entirety intact, sent for culture. We closed the area loosely with 3-0 chromic. We did hold pressure in the neck for 3 minutes, no active bleeding. The patient tolerated procedure well, had a sterile dressing applied. cc: Sigifredo Machuca MD
[2016-09-16] MEDS: DILAUDID IV PRN ×8 (01:24→21:55)
[2016-09-16] MEDS: DUONEB (A & A) INH SCH ×4 (03:22→19:05)
[2016-09-16 06:08] LABS: MANUAL DIFF NEEDED? NO
[2016-09-16 06:10] LABS: BASO% 0.5 % (0.0-0.8); EOS# 0.12 X1000 (0.0-0.7); EOS% 1.9 % (0.0-10.0); HEMATOCRIT 33.5 % (42.0-52.0); HEMOGLOBIN 9.9 g/dL (14.0-18.0); IMM GRAN# 0.04 X1000 (0.0-0.04); IMM GRAN% 0.6 % (0.0-0.5); LYMPH% 20.2 % (20.5-51.1); MCH 29.8 PG (27-31); MCHC 29.6 g/dL (33-37); MCV 100.9 FL (81-99); MONO# 0.75 X1000 (0.11-0.59); MONO% 11.7 % (1.7-9.3); MPV 9.5 FL (7.4-10.4); NEUT% 65.1 % (42.2-75.2); PLT 331 X1000 (130-400); RBC 3.32 XMIL (4.7-6.1)
[2016-09-16] MEDS: HUMULIN 70/30 SUBQ SCH (06:33)
[2016-09-16] MEDS: HEPARIN SUBQ SCH ×2 (06:34→17:26)
[2016-09-16] MEDS: HUMALOG SUBQ SCH ×4 (06:34→21:53)
[2016-09-16 06:37] LABS: ALBUMIN 2.6 g/dL (3.5-5.0); POTASSIUM 4.6 mmol/L (3.5-5.1)
[2016-09-16 06:38] LABS: CALCIUM 6.2 mg/dL (8.8-10.2)
[2016-09-16] MEDS: BACTROBAN OINTMENT TOP SCH (09:06)
[2016-09-16] MEDS: PRILOSEC PO SCH (09:06)
[2016-09-16] MEDS: AFRIN NASAL SPRAY NAS SCH (09:07)
[2016-09-16] MEDS ORDERED: PIGGYBACK SET 7393 ONE (09:08)
[2016-09-16] MEDS ORDERED: EXTENSION SET 32 IN 4522 ONE (09:08)
[2016-09-16] MEDS ORDERED: 1/2 NS 500 ML ONE (09:08)
[2016-09-16] MEDS ORDERED: XYLOCAINE-MPF 2% ONE (09:08)
--- NOTE | 2016-09-16 09:54 | PROGRESS NOTE ---
DATE: 09/16/2016 SUBJECTIVE: Patient doing well. Tolerated the tunneled catheter removal. No major issues. OBJECTIVE: Vital Signs: Patient is currently afebrile. His vital signs are stable. General Examination: No acute distress. Cardiovascular: Regular rate and rhythm. Lungs: Grossly clear. Abdomen: Soft, nontender, nondistended. Extremities: Gluteal wound dressing removed with the nurse. Area looks like it is improving. ASSESSMENT AND PLAN: A 40-year-old, -Estonian male status post removal of tunneled dialysis catheter and drainage of right gluteal abscess. 1. Right gluteal abscess. At this time, the patient's wound is slowly healing. We will recommend continued local wound care. 2. Sepsis. At this time, being managed by the hospitalist service. 3. End-stage renal disease. Patient is currently being managed by the nephrology service. I removed his tunneled dialysis catheter. He is getting dialysis via his fistula in his upper extremity. 4. Left hip pain. At this time, continue to monitor. cc: Sigifredo Machuca MD
[2016-09-16] MEDS ORDERED: OSCAL 500 + D PO SCH (14:30)
--- NOTE | 2016-09-16 15:22 | PROGRESS NOTE ---
DATE: 09/16/2016 TIME SEEN: 0830. SUBJECTIVE: Mr. Gutierrez is resting quietly in bed. He is sitting up on the side , eating his breakfast. He denies any chest pain. No increased work of breathing. PHYSICAL EXAMINATION: Vital Signs: His most recent vital signs are temperature 97.9 degrees, blood pressure 100/27, heart rate 102, respirations 14. He is on room air. Last recorded saturation is 100%. He has had 840 in, 3003 out, with 3 L of that on dialysis. General: This is a 40-year-old male. He is currently resting in bed. He is in no acute distress. Skin: Warm and dry. HEENT: Normocephalic, atraumatic. Conjunctivae pale. He has MENDEL. Mucous membranes are moist. Neck: Supple. Trachea midline. No JVD. Cardiovascular : Regular rate and rhythm. He is without murmur or gallop. Lungs: Clear to auscultation anteriorly. Equal excursion. He remains on room air. Abdomen: Large, obese, soft, nontender. Positive bowel sounds. Genitourinary: Not inspected. Minimal void with dialysis assist. Buttocks have not been inspected for a wound to the left gluteus. Extremities: Continues with 1 + lower extremity edema. No clubbing or cyanosis. Neurological: Alert and oriented x3. LABORATORIES: His most recent laboratories were sodium 137, potassium 4.6, chloride 95, CO2 of 23, BUN 35, creatinine 7.8, glucose 327. His anion gap is 19. Calcium 6.2, phosphorus 6.5, albumin 2.6. Hemoglobin 9.9, hematocrit 33.5, white count 6.43, platelet count 331,000. ASSESSMENT AND PLAN: 1. End-stage renal disease. Patient is due for his routine dialysis treatment in the a.m. We will continue to place patient on an appropriate calcium bath. Patient's corrected calcium to albumin is 7.32. Again, we will plan for correction on dialysis tomorrow with a 2.5 calcium bath. We will resume patient's calcium supplement. 2. Acid-base balance. This is acceptable. 3. Anemia. This is low, but stable. 4. Sepsis. Patient has had his left tunneled catheter removed. Abscess is being followed by Dr. Machuca. No indications for any intervention at this time. I would to thank you for allowing us to follow with this patient. Seen, data reviewed, discussed with Yeison Duran on 09/16/16. I agree with the above assessment and plan of care. rg Dictated by BOOM Faustin for Michael Hubbard MD cc: BOOM Faustin MD [facility]
--- NOTE | 2016-09-16 16:52 | PROGRESS NOTE ---
DATE: 09/16/2016 Today Mr. kown referred to be doing fine. Still complained of some pain to the butt from the abscess. OBJECTIVELY: Vitals: Blood pressure is 100/27, pulse is 102, respirations 14, temperature 97.9 degrees. General: Mr. Kwon is a 40-year-old, male. He was in bed. He is morbidly obese with a BMI of 7.0. Was not in any distress. HEENT: Mucosa is pink and moist. Anicteric. Acyanotic. Neck: Supple. Chest: Good air entry bilaterally. No crepitations. Abdomen: Soft, distended, but nontender. Extremities: No pedal edema. There is a fistula on the left arm. The abscess is packed and covered with sterile gauze. Review of microbiology data shows Staphylococcus hemolyticus on the right buttocks infection. The catheter tip was negative. Vitamin D is 7.3. PTH normal. ASSESSMENT: 1. Sepsis on presentation. This is improved. 2. Right gluteus abscess status post status post I and D by Dr. Machuca on 09/04/2016 and subsequently the wound grew staphylococcal hemolyticus. The patient is currently getting vancomycin and is being followed up by Dr. Ahn who plans to continue with vancomycin after each dialysis. 3. Vitamin D deficiency. We will replace this. 4. Hyperphosphatemia. Patient is currently not on any phosphate binder. We will start him on that. 5. End-stage renal disease on hemodialysis via the arm fistula. The tunnel cath was removed yesterday. 6. Anemia of chronic disease, stable. cc: Rohan Tadeo MD
[2016-09-16] MEDS: VITAMIN D PO SCH (17:26)
[2016-09-16] MEDS: PHOSLO PO SCH ×3 (17:27→18:15)
[2016-09-17] MEDS: AFRIN NASAL SPRAY NAS SCH ×3 (00:03→20:42)
[2016-09-17] MEDS: HEPARIN SUBQ SCH ×4 (00:05→20:43)
[2016-09-17] MEDS: BACTROBAN OINTMENT TOP SCH ×3 (00:06→20:47)
[2016-09-17] MEDS: DILAUDID IV PRN ×5 (00:51→20:44)
[2016-09-17] MEDS: DUONEB (A & A) INH SCH ×4 (03:08→21:10)
[2016-09-17] MEDS: HUMULIN 70/30 SUBQ SCH (06:06)
[2016-09-17] MEDS: HUMALOG SUBQ SCH ×4 (06:06→20:43)
--- NOTE | 2016-09-17 06:41 | PROGRESS NOTE ---
DATE: 09/17/2016 SUBJECTIVE: Discussed over the phone the wound care plan with the wound care nurse yesterday. New orders were given as far as using Vashe and Drawtex. No major issues reported by the nursing staff. OBJECTIVE: Vital Signs: Patient is currently afebrile. His vital signs have been stable. General Examination: No acute distress. Gluteal wound dressing in place. No significant change. Reviewed note from wound care nurse and overall the wound is healing. ASSESSMENT AND PLAN: A 40-year-old, male status post removal of tunneled hemodialysis catheter and drainage of right gluteal abscess. 1. Right gluteal abscess. At this time, we will continue local wound care. I will follow the patient peripherally at this point. Wound care nurse to continue seeing. 2. Sepsis. At this time, being managed by the hospitalist service. 3. End-stage renal disease. Currently being managed by the nephrology service. 4. Left hip pain. At this time, continue to monitor. cc: Sigifredo Machuca MD
[2016-09-17] MEDS ORDERED: NS 2,000 ML MISC PRN (07:19)
[2016-09-17] MEDS ORDERED: TIGHT: 0.2 ML/HR MISC PRN (07:19)
[2016-09-17] MEDS ORDERED: HEPARIN IV PRN (07:19)
[2016-09-17] MEDS ORDERED: HEPARIN ONE (08:46)
[2016-09-17] MEDS ORDERED: NS 2,000 ML ONE (08:46)
[2016-09-17 11:00] LABS: MANUAL DIFF NEEDED? NO
[2016-09-17 11:06] LABS: BASO% 0.5 % (0.0-0.8); EOS# 0.15 X1000 (0.0-0.7); EOS% 2.4 % (0.0-10.0); HEMATOCRIT 32.1 % (42.0-52.0); HEMOGLOBIN 9.5 g/dL (14.0-18.0); IMM GRAN# 0.03 X1000 (0.0-0.04); IMM GRAN% 0.5 % (0.0-0.5); LYMPH# 1.74 X1000 (1.2-3.4); LYMPH% 27.8 % (20.5-51.1); MCH 29.7 PG (27-31); MCHC 29.6 g/dL (33-37); MCV 100.3 FL (81-99); MONO# 0.89 X1000 (0.11-0.59); MONO% 14.2 % (1.7-9.3); MPV 9.5 FL (7.4-10.4); NEUT% 54.6 % (42.2-75.2); PLT 327 X1000 (130-400)
[2016-09-17 12:05] LABS: ALBUMIN 2.8 g/dL (3.5-5.0); CALCIUM 6.2 mg/dL (8.8-10.2); POTASSIUM 4.8 mmol/L (3.5-5.1)
[2016-09-17] MEDS: PHOSLO PO SCH ×3 (12:58→17:09)
[2016-09-17] MEDS: PRILOSEC PO SCH ×2 (13:00→13:03)
[2016-09-17] MEDS: VITAMIN D PO SCH (13:00)
--- NOTE | 2016-09-17 14:01 | PROGRESS NOTE ---
DATE: 09/17/2016 TIME SEEN: 07:50. SUBJECTIVE: Mr. Gutierrez is resting quietly. He is lying flat on his stomach. He denies chest pain or increased work of breathing. States he has buttock pain, greater on the left. OBJECTIVE: Vital signs: His most recent vital signs, temperature 97.9 degrees , blood pressure 123/56, heart rate 100, respirations 18. He is on 2 L nasal cannula. Last recorded saturation is 96%. He has had 1000 in, he has had 0 out. General: This is a 40-year-old male. He is currently resting in bed. He is in no acute distress. Skin: Warm and dry. HEENT: Normocephalic, atraumatic. Conjunctivae is pale. He has MENDEL. Mucous membranes moist. Neck: Supple. Trachea midline. No JVD. Cardiovascular: Regular rate and rhythm. Soft systolic murmur is noted. No gallop appreciated. Lungs: Clear to auscultation anteriorly. Equal excursion. Remains on O2. Abdomen: Large, round, soft, nontender. Positive bowel sounds. Genitourinary: Not inspected. Minimal void with dialysis assist. Extremities : Have trace pretibial edema. No clubbing or cyanosis. He has an AV fistula to the right upper arm. This is dry and intact. Good thrill palpable. Dressing has been removed to the tunnel catheter exit site on the left upper chest wall. Left buttock was not inspected. Neurological: Alert and oriented x3. LABORATORY: This a.m., sodium 139, potassium 4.8, chloride 97, CO2 22, BUN 45, creatinine 9.9, glucose 151. Anion gap of 20. He has a calcium of 6.2, phosphorus 7.7, albumin 2.8. White count 6.25, hemoglobin 9.5, hematocrit 32.1, platelet count 327,000. ASSESSMENT AND PLAN: 1. End-stage renal disease. Patient is due for his routine dialysis treatment today. We will place him on a 2K bath. He is to dialyze for 3.5 hours. We will attempt to pull him to his dry weight. 2. Electrolytes and acid-base balance. These basically remain stable. 3. Anemia. This remains low but stable. 4. Wound to the left buttock. This is followed by Surgery. I would like to thank you for allowing us to follow with this patient. Seen, data reviewed, discussed with Yeison Duran on 09/17/16. I agree with the above assessment and plan of care. rg Dictated by BOOM Faustin for Michael Hubbard MD cc: BOOM Faustin MD [facility]
[2016-09-17] MEDS: VANCOMYCIN 1 GM/NS 1 GM/250 ML IVPB IV SCH (14:55)
--- NOTE | 2016-09-17 16:07 | PROGRESS NOTE ---
DATE: 09/17/2016 SUBJECTIVE: Today Mr. Gutierrez refers to be doing fine. He continues to have pain to the surgical butt. OBJECTIVE: Vital signs: Blood pressure is 123/56, pulse of 100, respirations 18, temperature is 97.9 degrees. General: Mr. Gutierrez is a 40-year-old male. He is in bed. He did not seem to be in any remarkable distress. HEENT: Mucosa is pink and moist. Anicteric. Acyanotic. Neck: Supple. Chest: Good air entry bilaterally. No crepitations. Abdomen: Soft, distended, but nontender. Extremities: No pedal edema. There is a fistula in the left arm. SENIOR INTERACTIVE DEVELOPER: Patient is alert and oriented. The patient has significant both upper extremities severe diabetic neuropathy. LABORATORY DATA: Reviewed. CBC is unremarkable except for hemoglobin of 9.9, which is not new. Chemistry is consistent for endstage renal disease. ASSESSMENT AND PLAN: 1. Sepsis on presentation due to gluteal abscess. This has improved. 2. Right gluteal abscess status post I D by Dr. Machuca on 09/05/2015. This subsequently grew Staph hemolyticus. Will continue with the current IV antibiotics. 3. Catheter tip infection. This is growing gram-positive cocci. We are still pending the ID and sensitivity. However, the blood cultures have been negative for the past 8 days. Patient is clinically stable. We will continue with the current vancomycin therapy. 4. Vitamin D deficiency. We are replacing that. 5. Hyperphosphatemia secondary to end-stage renal disease. We will continue with phosphate binders. 6. End-stage renal disease on hemodialysis via fistula. 7. Anemia of chronic disease. Hemoglobin and hematocrit are stable. 8. Severe diabetic neuropathy. The patient was on gabapentin. We will restart him on his medications. 9. Diabetes mellitus, stable. cc: Rohan Tadeo MD
--- NOTE | 2016-09-17 17:36 | PROGRESS NOTE ---
DATE: 09/17/2016 PRESENT ILLNESS: The patient has a right buttock infection which is improving. He also had his tunneled dialysis catheter removed yesterday and the culture from it is growing gram positive cocci. MEDICATIONS: The patient receives vancomycin after each dialysis. This is day 13 of vancomycin. PHYSICAL EXAMINATION: Vital Signs: Temperature is 98 degrees, pulse 100, respirations 18, blood pressure 120/60. General: This is an obese young male. He is in no acute distress. Lungs: Clear to auscultation. Cardiovascular: Regular heart rate. Chest: The area where the tunneled dialysis catheter was removed is not swollen or tender. There is a small eschar at the exit site. Abdomen: Soft and nontender. Buttock: The right buttock is less indurated and swollen. Extremities: The patient's left arm AV fistula is not swollen or draining. LAB AND X-RAY: The tunneled catheter tip culture is growing gram positive cocci. The CBC shows a white count of 6250, hemoglobin 9.5, and platelet count 327,000. Patient's creatinine is 9.9. The GFR is 7. ASSESSMENT AND PLAN: The plan is to continue vancomycin for the patient's buttock infection and we will have to wait and see what the organism is that is growing from the catheter tip of the tunneled catheter but in the meanwhile I am going to continue vancomycin. COMORBIDITIES: Include end-stage renal disease, hemodialysis, diabetes mellitus, and morbid obesity. cc: Mikey Ahn MD
[2016-09-18] MEDS: DILAUDID IV PRN ×5 (00:46→20:14)
[2016-09-18] MEDS: DUONEB (A & A) INH SCH ×5 (03:23→21:38)
[2016-09-18] MEDS: HEPARIN SUBQ SCH ×3 (06:30→22:54)
[2016-09-18] MEDS: HUMALOG SUBQ SCH ×4 (06:30→22:54)
[2016-09-18] MEDS: HUMULIN 70/30 SUBQ SCH (06:31)
[2016-09-18 06:42] LABS: ALBUMIN 2.9 g/dL (3.5-5.0); POTASSIUM 4.6 mmol/L (3.5-5.1)
[2016-09-18] MEDS ORDERED: SORBITOL PO PRN (08:02)
[2016-09-18] MEDS: LYRICA PO SCH (09:04)
[2016-09-18] MEDS: PHOSLO PO SCH ×3 (09:05→18:40)
--- NOTE | 2016-09-18 09:42 | PROGRESS NOTE ---
DATE: 09/18/2016 SUBJECTIVE: Mr. Gutierrez is sitting up on the side of the bed. He is sitting on his buttocks. He states that he is feeling just a little bit better. He states that he is slightly constipated. Otherwise, denies chest pain or increased work of breathing. OBJECTIVE: His most recent vital signs: Temperature 98, blood pressure 124/58 , heart rate 104, respirations 18. He is on room air. Last recorded saturation 98%. He has had 1180 in. He has had 2.3 L pulled on dialysis. LABS THIS A.M.: Sodium 138, potassium 4.6, chloride 96, CO2 is 23, BUN 30, creatinine 7.3, glucose 229. Anion gap is 19. Calcium 6, phosphorus 5.9, albumin 2.9. His tip of his tunneled catheter showed gram-positive cocci. He is also showing Staphylococcus haemolyticus on his wound from his buttocks, and initial blood cultures negative after 5 days. PHYSICAL EXAMINATION: General: This is a 40-year-old black male. He is currently resting on the side of the bed. He is in no acute distress. Skin: Warm and dry. HEENT: Normocephalic, atraumatic. Conjunctiva is pale. He is MENDEL. Mucous membranes moist. Neck: Supple, trachea midline, no JVD. Cardiovascular: Regular rate and rhythm. He is without murmur or gallop. Lungs: Clear to auscultation anteriorly, equal excursion. Abdomen: Large, round, obese, soft, nontender, positive bowel sounds. Genitourinary: Not inspected. Minimal void with dialysis assist. Buttocks: He continues with the wound packing to his left buttock. Extremities: No edema, no clubbing or cyanosis. Fistula remains intact to the right upper arm. Neurological: Alert and oriented x3. ASSESSMENT AND PLAN: 1. End-stage renal disease. The patient is due for his routine dialysis treatment in the a.m. No other changes or need for intervention at this time. 2. Electrolytes. These are stable. Patient remains hypocalcemic secondary to hypoparathyroidism. He remains on cholecalciferol and his calcium acetate. 3. Acid-base balance. This is in target. 4. Anemia. This remains stable. 5. Wound to the left buttock. This is followed by Surgery and the wound nurse. He remains on renal-dosed antibiotic of vancomycin after his dialysis treatments. 6. Chief complaint is constipation. We will order patient sorbitol. I would like to thank you for allowing us to follow with this patient. Dictated by BOOM Faustin for Michael Hubbard MD Seen, data reviewed, discussed with Yeison Duran on 09/18/16. I agree with the above assessment and plan of care. cc: BOOM Faustin MD [facility]
[2016-09-18] MEDS: PRILOSEC PO SCH (10:04)
[2016-09-18] MEDS: BACTROBAN OINTMENT TOP SCH ×2 (10:06→22:55)
[2016-09-18] MEDS: AFRIN NASAL SPRAY NAS SCH ×2 (10:06→22:55)
[2016-09-18] MEDS: VITAMIN D PO SCH (10:07)
--- NOTE | 2016-09-18 13:19 | PROGRESS NOTE ---
DATE: 09/18/2016 SUBJECTIVE: Today Mr. Gutierrez refers to be doing fine. He did not actually have any complaints during the encounter today. OBJECTIVE: Vital signs: Blood pressure is 124/58, pulse of 104, respirations 18, temperature 98 degrees. General: Mr. Gutierrez is a 40-year-old male. He was lying down in bed. Not in any distress. HEENT: Mucosa is pink and moist. Anicteric. Acyanotic. Neck: Supple. Chest: Good air entry bilaterally. Did not appreciate any crepitations. Abdomen: Distended, but nontender. Extremities: Pedal edema. There is a dialysis fistula on the left arm which the nurse just put a sterile dressing over it. 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 The patient does shows remarkable neuropathic changes on the upper extremities with multiple digit amputations. LABORATORY DATA: Chemistry is reviewed consistent with end-stage renal disease. Glucose is 229. The tip of the catheter that was removed shows Staphylococcus epidermis which is sensitive to vancomycin and patient is getting vancomycin already for the wound infection. ASSESSMENT: 1. Sepsis on presentation due to gluteal abscess. The patient is currently stable. 3. Right gluteal abscess status post I D by Dr. Machuca on 09/05/2015. This time grew Staph hemolyticus. Patient is currently on IV antibiotics after dialysis, specifically vancomycin and is being followed up by Dr. Ahn. 4. Catheter-tip infection with Staphylococcal epidermidis. Unsure if this is a contamination or a true infection. Either way patient does not look toxic or septic, and he is getting vancomycin which is also sensitive for this bacteria. 5. Vitamin D deficiency. We will continue to replace. 6. Hyperphosphatemia secondary to end-stage renal disease. Patient is on phosphate binders. 7. Anterior renal disease on hemodialysis via left arm fistula. 8. Severe diabetic neuropathy. Patient is on Lyrica. 9. Anemia of chronic disease. Hemoglobin is stable. 10. Diabetes mellitus. The patient presented with A1c of 9.4, which means he was not very well controlled at home. He is currently on 70/30 at 18 units. We are going to increase this to 22 for a better glucose control. In general I think Mr. Gutierrez is doing a whole lot better. His main issues now is just the care of the wound. I spoke with the wound care nurse, Ms. Betancur. taking into consideration the patient's social background, she does not think he will be able to take very good care of the wound at home. I think at this point, the patient will be okay to be transitioned to SNF or an [facility] to continue with the IV antibiotics which he gets after dialysis and also for a continuos wound care. I did speak with the patient on the possibility of going to an SNF/rehab or an [facility]. He does not seems very enthused with the idea but I do not think there is any reason to keep him in acute care hospital. Will be pending hospital social worker arrangement for his discharge hopefully today or tomorrow. cc: Rohan Tadeo MD MTDD
[2016-09-19] MEDS: DILAUDID IV PRN ×4 (00:27→13:46)
[2016-09-19] MEDS: DUONEB (A & A) INH SCH (03:19)
[2016-09-19] MEDS: HEPARIN SUBQ SCH ×2 (05:01→13:47)
[2016-09-19] MEDS: HUMALOG SUBQ SCH ×2 (06:46→13:48)
[2016-09-19] MEDS ORDERED: HUMULIN 70/30 SUBQ SCH (07:00)
[2016-09-19] MEDS ORDERED: HEPARIN IV PRN (07:01)
[2016-09-19] MEDS ORDERED: TIGHT: 0.2 ML/HR MISC PRN (07:01)
[2016-09-19] MEDS ORDERED: NS 2,000 ML MISC PRN (07:01)
[2016-09-19] MEDS ORDERED: NS 2,000 ML ONE (08:48)
[2016-09-19] MEDS ORDERED: HEPARIN ONE (08:48)
[2016-09-19] MEDS: VITAMIN D PO SCH (09:00)
[2016-09-19] MEDS: PHOSLO PO SCH ×2 (09:00→13:47)
[2016-09-19] MEDS: PRILOSEC PO SCH (09:00)
[2016-09-19] MEDS: LYRICA PO SCH (09:01)
[2016-09-19] MEDS: BACTROBAN OINTMENT TOP SCH (09:01)
[2016-09-19] MEDS: AFRIN NASAL SPRAY NAS SCH (09:02)
[2016-09-19 11:18] LABS: ALBUMIN 2.8 g/dL (3.5-5.0); POTASSIUM 4.8 mmol/L (3.5-5.1)
[2016-09-19 11:22] LABS: CALCIUM 6.4 mg/dL (8.8-10.2)
[2016-09-19] MEDS: VANCOMYCIN 1 GM/NS 1 GM/250 ML IVPB IV SCH (12:09)
--- NOTE | 2016-09-19 12:09 | DISCHARGE SUMMARY ---
ADMISSION DATE: 09/03/2016 DISCHARGE DATE: 09/19/2016 LENGTH OF STAY: Fifteen days. DISPOSITION: Long-term acute care at [facility]. FOLLOWUP: 1. Dr. Lieberman. 2. Dr. Hubbard. 3. Dr. Ahn. CONSULTATIONS DURING THIS ADMISSION: 1. Infectious Disease was consulted. Patient was seen by Dr. Ahn. 2. Surgery was consulted. Patient was seen by Dr. Machuca. 3. Nephrology was consulted. Patient was seen by Dr. Hubbard. INVASIVE PROCEDURES DONE DURING ADMISSION: 1. Incision and drainage was done by Dr. Machuca on 09/04/2016 for a gluteal abscess. 2. Removal of tunneled hemodialysis catheter was also done by Dr. Machuca on 09/15/2016. ADMISSION DIAGNOSES: 1. Sepsis secondary to pneumonia. 2. End-stage renal disease. 3. Diabetes mellitus. 4. Possible sleep apnea. 5. Possible gluteal abscess. DISCHARGE DIAGNOSES: 1. Sepsis on presentation due to gluteal abscess. 2. Right gluteal abscess status post incision and drainage by Dr. Machuca on 09/04/2016. 3. Tunneled catheter tip infection with Staphylococcus epidermidis. This was removed. 4. Vitamin D deficiency. 5. Hyperphosphatemia secondary to end-stage renal disease. 6. End-stage renal disease, on hemodialysis via left arm fistula. 7. Severe diabetic neuropathy. 8. Anemia of chronic disease. 9. Diabetes mellitus with presenting A1c of 9.4. 10. Morbid obesity with body mass index of 28.5. DISCHARGE MEDICATIONS: 1. Flint 5 mg p.o. q.4 p.r.n. 2. Insulin 70/30, 22 units subcutaneously daily. 3. Omeprazole 40 mg daily. 4. Lyrica 50 mg daily. 5. PhosLo 1334 p.o. daily. 6. Vancomycin 1 g q.48 hours after dialysis. PRESENTING COMPLAINT: Low blood pressure. HISTORY OF PRESENTING COMPLAINT: Mr. Gutierrez is a 40-year-old male with a history of end-stage renal disease, hypertension, and diabetes, who came into the emergency department because his blood pressures have been low. Patient was evaluated and was found to have a presenting temperature of 100.1 degrees. Systolic blood pressures were in the 80s and 90s. The patient was evaluated and initially thought to have pneumonia and possible gluteal abscess, and was admitted for further medical care. HOSPITAL COURSE: Patient had a little lengthy hospital stay. Was started on IV antibiotics right away. Both Nephrology and ID were consulted. The right gluteal abscess was also evaluated by Surgery and incision and drainage was eventually done. Culture grew Staphylococcus hemolyticus, and the wound care nurse was also consulted and patient had wound care as scheduled. During the hospital stay, patient did have a tunneled catheter for dialysis because of issues with his fistula. Somewhere along the line, it was deemed necessary to remove the catheter because he no longer needed it and there was a suspicion that that could be driving part of the infection. Blood cultures, however, were negative. But the catheter tip was positive for Staphylococcus epidermidis, which was also sensitive to vancomycin. Patient was already on that antibiotic. For the past 2-3 days, patient has been stable. Vitals are fine. He has been tolerating his dialysis all this time. However, it was deemed necessary for patient to go to an LTAC to continue with care of the wound and also all his other comorbidities, including antibiotic therapy for the infection. He is therefore going to be discharged to [facility]. youth accommodation support worker has already made arrangements and Dr. Lieberman is the one who is going to be receiving him on that end. Today, Mr. Gutierrez is doing fine. I saw him. He is getting his dialysis. Blood pressure is 109/41, pulse 96, respirations 16, and temperature 98.5 degrees. Physical examination is completely unchanged. The patient will be discharged in stable condition to LTAC to continue with wound care, antibiotic therapy, and scheduled hemodialysis. At the time of discharge, there are not any pending laboratories. TIME SPENT FOR DISCHARGE: 36 minutes. cc: Rohan Tadeo MD
--- NOTE | 2016-09-19 13:07 | PROGRESS NOTE ---
DATE: 09/19/2016 PRESENT ILLNESS: The patient has a right buttock infection which has been steadily improving since it has been debrided. Also, the patient's temporary dialysis catheter tip grew Staphylococcus epidermidis. MEDICATIONS: The patient gets vancomycin after each dialysis. This is day 15 of treatment. PHYSICAL EXAMINATION: Vital Signs: Temperature is 98.5 degrees, pulse 96, respirations 16, blood pressure 109/41. Generally: This is an obese young male. He is alert today. He is in no acute distress. Lungs: Clear to auscultation. Cardiovascular: Regular heart rate. Abdomen: Soft and nontender. Skin: The right buttock infected area has a dressing over it. The dressing is intact. The site on the patient's chest where he had the dialysis catheter removed is not swollen or tender. Extremities: Patient has an AV fistula which is working well for dialysis. LAB AND X-RAY: The catheter tip grew Staph epidermidis as mentioned above. There is no new laboratory for today. Yesterday the creatinine was 7.3 with a GFR of 10. The day before that the patient's CBC showed a white count of 6250, hemoglobin 9.5, and platelet count 327,000. ASSESSMENT AND PLAN: Dr. Hubbard has gone ahead and called in another 2 weeks of vancomycin to be given after each dialysis as an outpatient. The patient is being discharged today COMORBIDITIES: He is a morbidly obese, has renal failure, he is on dialysis and he also is a diabetic. I am available to see the patient on a p.r.n. basis. I am signing off for now. cc: Mikey Ahn MD
[2016-09-19 13:38] VITALS: BP 132/73
--- NOTE | 2016-09-19 13:54 | PROGRESS NOTE ---
DATE: 09/19/2016 SUBJECTIVE: Patient currently resting in bed undergoing hemodialysis. He states that he believes he will go home today. OBJECTIVE: Vital Signs: Temperature 98.5 degrees, pulse 96, respiratory rate 16, blood pressure 109/41. Intake 1.2 L. Output 9. EXAM: General: Middle-aged gentleman resting in bed. No acute distress. HEENT: Normocephalic, atraumatic. Oral mucosa moist. Neck: Supple. Trachea midline. Cardiovascular: Regular rate and rhythm without murmur or gallop. Pulmonary: Equal excursion. He is clear bilaterally. Abdomen: Soft, positive bowel sounds. Obese. : Not inspected. Extremities: No clubbing, cyanosis or edema. He has an AV fistula left upper extremity currently cannulated for dialysis. Integumentary: Old tunnel dialysis catheter site clean, dry and intact. ASSESSMENT AND PLAN: End-stage renal disease management. Today is his routine dialysis day. He is on a 2 K bath with a UF goal of 3.1 L. We will continue his dialysis today and then as an outpatient in the dialysis clinic. Seen, data reviewed, discussed with Sade Paz on 09/19/16. I agree with the above assessment and plan of care. rg Dictated by BOOM Roberson for Michael Hubbard MD cc: Michael Hubbard MD [facility]
--- NOTE | 2016-10-06 15:38 | PROVIDER DOCUMENTATION ---
This chart was entered by Loly Mclean Scribe, acting as scribe for Kamilla Roger Jr, MD. HPI-Respiratory General <Amber San - Last Filed: 09/03/16 22:09> <Miguelito Batista - Last Filed: 09/24/16 17:19> - General Source: patient - History of Present Illness-Resp Quality of Pain: reports: tightness Severity in ED: reports: severe Onset/Duration: reports: 2 days ago Timing: reports: still present, changing over time, getting worse Cough Quality/Degree: reports: no cough Modifying Factors: improves with: rest. worse with: deep breath, lying down, sitting upright Associated Symptoms: reports: hurts to breathe, nasal congestion, nasal drainage , shortness of breath <Kamilla Roger Jr - Last Filed: 10/06/16 15:38> - General Chief Complaint: Shortness of Breath Stated Complaint: resp distress Time Seen by Provider: 09/03/16 18:59 Allergies/Adverse Reactions: Patient Allergies Allergy/AdvReac Type Severity Reaction Status Date / Time amoxicillin [Amoxicillin] Allergy Intermediate Unknown Verified 09/02/16 13:38 morphine Allergy Mild ITCHING Verified 09/02/16 13:38 Home Medications: Home Medication List Medication Instructions Recorded Confirmed Last Taken Type Insulin Lispro [Humalog] 25 unit SQ DIRECTED PRN 04/03/15 09/02/16 09/01/16 21:00 History Calcium Acetate [Phoslo] 1,334 mg PO TID CC tablet 09/19/16 Unknown Rx Hydrocodone/APAP 5 mg/325 mg 1 each PO Q4H PRN PRN #20 tablet 09/19/16 Unknown Rx [[place]-5] Insulin Humulin 70/30 [Humulin 22 unit SUBQ ACB insuln.pen 09/19/16 Unknown Rx 70/30] Omeprazole [Prilosec] 40 mg PO DAILY capsule 09/19/16 Unknown Rx Oxymetazoline Nasal [place] [Afrin 0 ml SIMONA Q12HR bottle 09/19/16 Unknown Rx Nasal [place]] Pregabalin [Lyrica] 50 mg PO DAILY #30 capsule 09/19/16 Unknown Rx - History of Present Illness-Resp Nature of Presenting Problem: 40 Y/O F presents to ED with SOB. Pt was brought in by EMS from Dialysis center and c/o of increased SOB. Pt states that it began 2 day ago and has worsened. At dialysis pt was 8 kilos over body weight, pt almost had a syncopal episode at dialysis. States hx of HTN, Diabetes, high cholesterol. (Loly Mclean) 40 Y/O F presents to ED with SOB. Pt was brought in by EMS from Dialysis center and c/o of increased SOB. Pt states that it began 2 day ago and has worsened. At dialysis pt was 8 kilos over body weight, pt almost had a syncopal episode at dialysis. States hx of HTN, Diabetes, high cholesterol. (Kamilla Roger Jr) Review of Systems - Adult - REVIEW OF SYSTEMS - ADULT ROS:: limited per condition Constitutional: denies: chills, fever Eyes: reports: no symptoms reported Ears, Nose, Mouth & Throat: reports: no symptoms reported Cardiovascular: reports: no symptoms reported Respiratory: reports: shortness of breath. denies: cough, wheezing Gastrointestinal: denies: diarrhea, nausea, vomiting Genitourinary: reports: no symptoms reported Musculoskeletal: reports: muscle weakness. denies: muscle aches Integumentary: reports: no symptoms reported Neurological: reports: no symptoms reported Psychiatric: reports: no symptoms reported Endocrine: reports: no symptoms reported Hematologic/Lymphatic: reports: no symptoms reported Allergic/Immunologic: reports: no symptoms reported All Other Systems: Reviewed and Negative <Miguelito Batista - Last Filed: 09/24/16 17:19> - REVIEW OF SYSTEMS - ADULT Constitutional: denies: chills, fever Eyes: reports: no symptoms reported Ears, Nose, Mouth & Throat: reports: sinus problem Cardiovascular: reports: chest pain Respiratory: reports: shortness of breath. denies: cough Gastrointestinal: reports: no symptoms reported Genitourinary: reports: no symptoms reported Musculoskeletal: reports: no symptoms reported Integumentary: reports: no symptoms reported Neurological: reports: no symptoms reported Psychiatric: reports: no symptoms reported Endocrine: reports: no symptoms reported Hematologic/Lymphatic: reports: no symptoms reported Allergic/Immunologic: reports: no symptoms reported All Other Systems: Reviewed and Negative <Kamilla Roger Jr - Last Filed: 10/06/16 15:38> Past History - Adult - PAST MEDICAL HISTORY-ADULT Review of Records: reports: Old Records Reviewed, Nursing Assessment Review, Medications Reviewed, Social history reviewed & non-contributory. <Miguelito Batista - Last Filed: 09/24/16 17:19> - PAST MEDICAL HISTORY-ADULT Review of Records: reports: Old Records Reviewed, Nursing Assessment Review, Medications Reviewed, Social history reviewed & non-contributory. Major Childhood Illnesses: reports: denies history Cardiovascular: reports: HTN Respiratory: reports: denies history Gastrointestinal: reports: denies history Obstetrical/Gynecological: reports: denies history Genitourinary: reports: dialysis, ESRD, kidney disease Musculoskeletal: reports: arthritis, chronic pain Neurological: reports: other (kyler barre) Endocrine/Immune: reports: Diabetes Other Conditions: reports: denies history - PRIOR SURGERIES/PROCEDURES Surgical/Procedure History: reports: recent surgery, indwelling device, other - PRIOR HOSPITALIZATIONS Prior Hospitalizations: reports: other - IMMUNIZATION STATUS Childhood Immunizations: See Nurse Assessment Flu Vaccine: See Nurse Assessment - FAMILY HISTORY Family History: reviewed, not pertinent - SOCIAL HISTORY Smoking: non-smoker Substance Use: none/never Alcohol Use Frequency: never Living Situation: family <Kamilla Roger Jr - Last Filed: 10/06/16 15:38> Physical Exam-General - PHYSICAL EXAM-ADULT Initial Vital Signs Reviewed: Yes - CONSTITUTIONAL General Appearance: alert, mild distress, obese - EYES Eyes: PERRL/EOMI, pink conjunctivae, FUN - HEAD, EARS, NOSE, MOUTH & THROAT HENMT: normocephalic/atraumatic, moist mucous membranes, normal ENT inspection, TMs normal, pharynx normal - NECK Neck: non-tender, full range of motion, supple, normal inspection - RESPIRATORY Respiratory: other (DIMINISHED BILATERALLY) - CARDIOVASCULAR Cardiovascular: normal peripheral pulses, regular rate, rhythm - CHEST (BREASTS) Chest/Breast: other (subclavian left upper anterior) - GASTROINTESTINAL (ABDOMEN) Abdominal Exam: normal bowel sounds, non tender, soft - LYMPHATIC Lymphatic: no adenopathy - MUSCULOSKELETAL Back Exam: normal inspection, no CVA tenderness, no vertebral tenderness Extremity: other (2x1 OPEN FISTULA ON LEFT ARM, Amputated left toes 2nd,3rd, Amputated left fingers 3rd complete 1/2 5th) - SKIN Integumentary: warm/dry - 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 Batista notified and to bedside for evaluation. Lactate, blood cultures ordered. NS bolus initiated, norepinephrine drip ordered.) Reassessment #2 Time Reassessed: 21:27 Status: other (Dr. Moreau at bedside for evaluation. Left AV fistula accessed by Dr. Batista for specimens.) - XRAY 1 XRAY Study: Chest Impression: Abnormal (RLL pneumonia, pulmonary congestion. per Dr. Batista) - CONSULTS/PCP/HOSPITALIST Notification #1 *Consult/PCP/Hospitalist*: Dr. Moreau Time Discussed: 20:53 Reason/Comments: Hypocalcemia, hypotension, SIRS, ESRD Consult Disposition: Will see in ED, Admit <Amber San - Last Filed: 09/03/16 22:09> - PLAN OF CARE/RESULTS Result Diagrams: 09/17/16 09:50 09/19/16 09:50 <Miguelito Batista - Last Filed: 09/24/16 17:19> - PLAN OF CARE/RESULTS Result Diagrams: 09/17/16 09:50 09/19/16 09:50 - REASSESSMENT Reassessment #3 Time Reassessed: 00:09 (Dr. Batista reexamined Pt and did a exam and noted that pt had a large perirectal abscess and has notified Dr. Moreau. ) Status: worsening - XRAY 1 XRAY Study: Chest Impression: Abnormal XRAY Interpretation: possible pneumonia, right pleural effusion - CT/MRI 1 CT Study: Abdomen, Pelvis Impression: Abnormal CT Results: a large inflammatory mass with multiple gas pockets, not drainabable 2 CT Study: Thorax Impression: Normal CT Results: no pneumonia, no effusion, prominent atherosclerosis - CONSULTS/PCP/HOSPITALIST Notification #2 Consult: Time Discussed: 00:19 Reason/Comments: Plan of Care Consult Disposition: other (order a CT, follow up with Dr. Machuca about result) <Kamilla Roger Jr - Last Filed: 10/06/16 15:38> - PLAN OF CARE/RESULTS Progress/Plan/Lab Results: Orders Category Date Time Status Admit - [facility] Routine AdmDCTranf 09/04/16 01:13 Ordered Activity - Up with Assistance ORDERED Care 09/04/16 01:13 Active FSBS/Accucheck Result AC + HS Care 09/04/16 01:13 Active IV Insertion ORDERED Care 09/03/16 22:07 Completed Intake and Output-Strict ORDERED Care 09/04/16 01:13 Active Nursing- MD Consult Request ROUTINE Care 09/04/16 01:13 Completed Vital Signs Order Q 4-HR ASSESS Care 09/04/16 01:13 Hold Physician/Provider Consults Routine Cons 09/04/16 01:13 Ordered Physician/Provider Consults Routine Cons 09/04/16 03:30 Ordered Diabetic Diet Diet 09/04/16 07:00 Completed CHEST-PORTABLE [RAD] Stat Exams 09/03/16 19:[address] THORAX W/O CONTRAST [CT] Stat Exams 09/03/16 21:39 Completed A1C HGB W EST AVG GLUCOSE [CHEM] Stat Lab 09/04/16 00:00 Completed ABG [RESP] Routine Lab 09/03/16 21:27 Completed BASIC METABOLIC PANEL [CHEM] DAILY Lab 09/04/16 05:50 Completed BASIC METABOLIC PANEL [CHEM] DAILY Lab 09/05/16 08:30 Completed BASIC METABOLIC PANEL [CHEM] DAILY Lab 09/06/16 09:15 Completed BASIC METABOLIC PANEL [CHEM] DAILY Lab 09/07/16 07:26 Completed BASIC METABOLIC PANEL [CHEM] DAILY Lab 09/08/16 04:07 Completed BLOOD CULTURE [BLDCUL] Stat Lab 09/03/16 21:18 Completed CBC WITH DIFF [HEME] DAILY Lab 09/04/16 05:50 Completed CBC WITH DIFF [HEME] DAILY Lab 09/05/16 08:30 Completed CBC WITH DIFF [HEME] DAILY Lab 09/06/16 09:15 Completed CBC WITH DIFF [HEME] DAILY Lab 09/07/16 07:26 Completed CBC WITH DIFF [HEME] DAILY Lab 09/08/16 04:07 Completed CBC WITH ELECTRONIC DIFF [HEME] Stat Lab 09/03/16 18:55 Completed CMP [COMPREHENSIVE METABOLIC PANEL] [CHEM] Stat Lab 09/03/16 18:55 Completed I-STAT IONIZED CALCIUM [RESP] Routine Lab 09/03/16 21:27 Completed LACTATE, PLASMA [CHEM] Stat Lab 09/03/16 21:18 Completed 0.9% Sodium Chloride Inj [Ns] 1,000 ml Med 09/03/16 20:56 Discontinued .ROUTE As Directed 0.9% Sodium Chloride Inj [Ns] 250 ml Med 09/03/16 21:08 Discontinued IV Wide Open 0.9% Sodium Chloride Inj [Ns] 250 ml Med 09/03/16 22:13 Discontinued IV Wide Open Acetaminophen [Tylenol] Med 09/04/16 01:13 Discontinued 650 mg PO Q4H PRN PRN Albuterol 2.5MG/Ipratrop 0.5MG [Duoneb (A & A)] Med 09/04/16 03:00 Discontinued 3 ml INH [id number] Calcium Gluconate 2 gm Med 09/03/16 22:13 Discontinued 0.9% Sodium Chloride Inj [Ns] 100 ml IV NOW Dextrose 5%-0.45% NaCl Inj [D5 1/2 Ns] 250 ml Med 09/03/16 21:15 Discontinued Norepinephrine [Levophed] 8 mg IV As Directed Heparin Med 09/04/16 05:00 Discontinued 5,000 unit SUBQ Q8HR Insulin Lispro [Humalog] Med 09/04/16 07:00 Discontinued See Protocol SUBQ 0700,1100,1600,2100 Meropenem [Merrem] 500 mg Med 09/04/16 01:13 Discontinued 0.9% Sodium Chloride Inj [Ns] 50 ml IV Q24H Omeprazole [Prilosec] Med 09/04/16 09:00 Discontinued 40 mg PO DAILY Ondansetron [Zofran] Med 09/04/16 01:13 Discontinued 4 mg IV Q4H PRN PRN Pharmacy Order [Vancomycin IV Per Pharmacy] Med 09/04/16 01:13 Discontinued 1 each MISC DIRECTED Vancomycin 1 gm/Ns Med 09/03/16 21:04 Discontinued 1 gm in 250 ml IV NOW Vancomycin 1 gm/Ns Med 09/03/16 21:05 Discontinued 1 gm in 250 ml IV NOW Aerosol Treatments Routine Oth 09/04/16 01:13 Completed Aerosol Treatments Stat Oth 09/04/16 01:13 Completed Oxygen Device Stat Oth 09/03/16 22:00 Completed EKG [EKG] Stat Ther 09/03/16 21:09 Draft Transfer/Admit Order [TRANSFER] Routine Transfer 09/03/16 21:40 Completed Assumed care of patient at [address] Roger; labs, xray pending, admit when complete. Vital Signs - 24 hr 09/03/16 18:38 09/03/16 18:48 09/03/16 20:22 Temperature 99.8 F H Pulse Rate 114 H 111 H Respiratory Rate 22 Blood Pressure 82/61 O2 Sat by Pulse Oximetry 94 L 95 98 09/03/16 21:30 Temperature Pulse Rate Respiratory Rate Blood Pressure 84/45 O2 Sat by Pulse Oximetry (Amber San) [facility] Batista about labs, Plan of care, vital signs, treatment, radiology reviewed Chest X-ray. was at bedside with Pt and accessed the left AV fistula. 1:20 Dr. Batista notified radiology for a STAT result reading on Pt CT result 1:29 Dr. Machuca notified about the Result of the CT Scan. (Loly Mclean) [facility] Dr[facility] Batista about labs, Plan of care, vital signs, treatment, radiology reviewed Chest X-ray. was at bedside with Pt and accessed the left AV fistula. 1:20 Dr. Batista notified radiology for a STAT result reading on Pt CT result 1:29 Dr. Machuca notified about the Result of the CT Scan. (Kamilla Roger Jr) Procedures - ADDITIONAL PROCEDURES Additional Procedure: OTHER (accessing a left AV fistula, in upper left arm for blood) <Kamilla Roger Jr - Last Filed: 10/06/16 15:38> Departure - Departure Time of Disposition Decision: 20:52 Certified Medical Emergency: Emergent <Amber San - Last Filed: 09/03/16 22:09> <Miguelito Batista - Last Filed: 09/24/16 17:19> - Departure Time of Disposition Decision: 20:52 Certified Medical Emergency: Emergent - Critical Care Note This patient required my direct & personal management of CC.: No Total Time (mins): 30 Critical Care Statement: This patient required my direct personal management to treat or rule out processes, the absence of which, could potentiallly result in sudden, clinically significant life or limb threatening deterioration. <Kamilla Roger Jr - Last Filed: 10/06/16 15:38> - Departure DIAGNOSIS: Hypocalcemia, End stage renal disease, SIRS (systemic inflammatory response syndrome) Disposition: ADMITTED INPATIENT 09 Condition: Stable Attestation - Physician/ FANG Attestation Patient care was provided by Advanced Practice Provider:: Yes Advanced Practice Provider:: Amber San Advanced Practice Provider documentation review:: The Mid-level provider documentation, treatment plan and medical decision making was reviewed by the physician who agrees with all treatment and medical decision making by the MLP. The physician spent face to face time with patient:: Yes (Dr. Batista at bedside multiple times.) Advanced Practice Provider documentation review:: The physician spent face to face time with this patient and agrees with all MLP documentation, treatment, and medical decision making by the MLP. See provider notes for further information. <Amber San - Last Filed: 09/03/16 22:09> This chart was documented by the indicated scribe, (Loly Mclean Scribe) and accurately reflects the services I performed and decisions made by me, Kamilla Roger Jr, MD, as attested by the provider's signature.
== END 2016-09-19 14:48 ==
LOC: ED 18:33 → ICU 23:47 → SUATTDRO 23:47 → 4N 09-10 15:21
PROVIDERS: ATTEND Internal Medicine